=== PATIENT | male | born 1950 | race Caucasian/White ===

== ENCOUNTER 2022-12-10 09:48 | Emergency (ER) | payer MEDICARE, SELFPAY ==
[2022-12-10] VITALS (13 sets, daily range): BP systolic 122–182; BP diastolic 60–91; PULSE 68–105; RESP 14–33; TEMP 36.9; O2SAT 97–100; BMI 21.8
--- NOTE | 2022-12-10 10:32 | ED.GENADULT ---
HPI - General Adult General Chief complaint: Dizziness Stated complaint: vision/balance/feeling sick Time Seen by Provider: 12/10/22 10:07 Source: patient Mode of arrival: Ambulatory Limitations: no limitations History of Present Illness HPI narrative: This is a 72-year-old male with history of hypertension, dyslipidemia, BPH, gastric bypass, single kidney and daily alcohol use who presents with complaint of 1 year of vision changes which he describes as spots sort of cloudy and sparkles he saw an eye doctor last week had a full eye exam and was told he had some age-related changes but no other acute changes. He also notes that he is had no fevers or chills no headaches but his legs have felt weak in general, he is developed a tremor in the past 1-2 years. He denies numbness or tingling. No paresthesias. Patient states no chest pain, no shortness of breath. He sometimes gets dizzy when he lays flat. 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 He has noted his gait seems to be a little bit off he states he walks like he is drunk. He notes he sometimes has some issues with short-term memory. Patient denies any nausea or vomiting. He notes loose stools but otherwise normal bowel movements. He recently had some urinary frequency saw his physician on Tuesday or Tuesday had blood work and urine and was found to have a bladder infection. Prescription was called in he is taken 1 or 2 doses total. Patient does note he is had a TURP in the past. He also notes he is developed a resting tremor that is constant nothing seems to make it better or worse. He denies any swelling in his extremities. Patient states prior surgeries include gastric bypass and then something he ?blew out? twice or was leaking and he had surgical repair for that. He is had a TURP, he states he is also had a nephrectomy and has a single kidney present. Patient denies any allergies. He chews tobacco, he states in the past 1 2 years he started drinking more frequently and has 1-2 drinks daily, no street drugs. He has tried THC but states it is not been helpful. He is quite anxious his sister from had something that leaked and cause a bleed in her brain and his brother had a tumor in his brain. Patient follows with Dr. Griffith through [facility] in [place]. Related Data Home Medications Medication Instructions Recorded Confirmed amlodipine 10 mg tablet 10 mg PO DAILY 12/10/22 12/10/22 amoxicillin 875 mg-potassium 1 tab PO BID 12/10/22 12/10/22 clavulanate 125 mg tablet atorvastatin 40 mg tablet 40 mg PO BEDTIME 12/10/22 12/10/22 fluoxetine 20 mg capsule 10 mg PO DAILY 12/10/22 12/10/22 metoprolol succinate 100 mg 100 mg PO DAILY 12/10/22 12/10/22 tablet,extended release 24 hr oxybutynin chloride 5 mg tablet 5 mg PO DAILY 12/10/22 12/10/22 Previous Rx's Medication Instructions Recorded thiamine HCl (vitamin B1) 100 mg 100 mg PO DAILY #30 tabs 12/10/22 tablet Allergies Allergy/AdvReac Type Severity Reaction Status Date / Time No Known Drug Allergies Allergy Verified 12/10/22 10:09 Review of Systems Review of Systems ROS Unobtainable: All systems reviewed & are unremarkable except as noted in HPI and below Patient History Social History Smoking Status: Never smoker Smoking Status: Never smoker alcohol intake frequency: 0-2 drinks per day Substance Use Type: does not use Exam Narrative Exam Narrative: GEN: Thin elderly male, alert and oriented x 3, patient appears to be in mild distress. HEENT: Atraumatic, pupils are equal round reactive to light, extraocular movements are intact, no nystagmus, nares are clear, TMs are clear with no fluid, there is no conjunctival pallor. Throat is clear without any exudates, erythema, tonsillar enlargement or uvular deviation, no facial droop HEART: Regular rate and rhythm without murmur, clicks, rubs. No carotid bruits, pulses are equal in upper and lower extremities LUNGS:Lungs clear to auscultation, no wheezes, rales, crackles, chest moves symmetrically, no tachypnea or accessory muscle use. ABD:bowel sounds normal, soft, non-tender, no guarding, rebound, rigidity, no masses noted, no hepatosplenomegaly :No CVA tenderness MSCL: Non-tender, no muscle atrophy, muscles strength 5/5 upper and lower extremities, full range of motion. NEURO:CN 2-12 intact, sensation normal, reflexes 2/4 upper and brisk bilateral lower extremities. finger nose finger test normal, heel harding test normal, patient does have a generalized resting tremor on examination. Normal speech no dysarthria or aphasia. SKIN: Patient has multiple small areas of ecchymosis on his bilateral upper extremities. PSYCH: Patient expresses issues with short-term memory such as forgetting where he put a wrench or what he is looking for. Expresses anxiety. No depression. Does note increased use of alcohol the past 1-2 years. Initial Vital Signs Initial Vital Signs: Vital Signs Pulse Rate 104 H 12/10/22 09:55 Pulse Oximetry 100 12/10/22 09:55 Course Orders Ordered: ED Orders 12/10/22 11:01 Complete Blood Count AUTO DIFF Stat Comprehensive Metabolic Panel Stat ETOH [Ethanol (ETOH)] Stat Folate Stat MAG [Magnesium] Stat PTT Partial Thromboplastin Mihir Stat Prothrombin Time INR Stat TSH [Thyroid Stimulating Hormone] Stat Troponin I Stat 12/10/22 11:34 CT angio head and neck Stat 12/10/22 11:57 Urine Drug Screen, Rapid Stat Discontinued Medications Sodium Chloride (Normal Saline 0.9%) 1,000 mls @ 1,000 mls/hr IV BOLUS ONE Stop: 12/10/22 12:34 Last Infusion: 12/10/22 13:16 Dose: 0 mls/hr Documented By: Admin: 12/10/22 12:06 Dose: 1,000 mls/hr Documented By: KONRAD Vital Signs Vital signs: Vital Signs - 8 hr 12/10/22 11:30 12/10/22 11:30 12/10/22 11:52 Pulse Rate 79 Respiratory Rate 20 Blood Pressure 122/64 168/79 H Pulse Oximetry 98 12/10/22 11:52 12/10/22 12:00 12/10/22 12:00 Pulse Rate 95 H 79 Respiratory Rate 17 14 Blood Pressure 145/60 H Pulse Oximetry 100 99 12/10/22 12:30 12/10/22 12:30 12/10/22 13:00 Pulse Rate 79 Respiratory Rate 19 Blood Pressure 128/66 137/66 Pulse Oximetry 98 12/10/22 13:00 Pulse Rate 68 Respiratory Rate 14 Blood Pressure Pulse Oximetry 97 Medical Decision Making Lab Data 12/10/22 11:01 12/10/22 11:01 Labs: Lab Results 12/10/22 12/10/22 12/10/22 Range/Units 11:01 11:01 11:01 WBC 3.4 L (4.5-11.0) X10^3/uL RBC 3.55 L (4.5-5.9) X10^6/uL Hgb 12.1 L (13.5-17.5) g/dL Hct 36.0 L (41-53) % MCV 101.6 H (80-100) fL MCH 34.2 H (26-34) PG MCHC 33.6 (30-36) % RDW 13.2 (11.6-14.8) % Plt Count 255 (150-400) X10^3/uL Neut % (Auto) 68.0 (50-75) % Lymph % (Auto) 23.2 L (25-40) % [place] % (Auto) 6.0 (3-14) % Eos % (Auto) 1.8 L (2-4) % Baso % (Auto) 1.0 (0-2) % Neut # (Auto) 2300 (7399-1552) /uL Lymph # (Auto) 800 L (0996-5730) /uL [place] # (Auto) 200 (0-900) /uL Eos # (Auto) 100 (0-450) /uL Baso # (Auto) 0 (0-100) /uL PT 11.3 (10.1-12.7) SECONDS INR 1.0 (0.9-1.3) APTT 28 (26-36) SECONDS Sodium 141 (137-145) mmol/L Potassium 5.3 H (3.4-5.1) mmol/L Chloride 111 H (98-107) mmol/L Carbon Dioxide 17 L (22-32) mmol/L BUN 17 (9-20) mg/dL Creatinine 1.61 H (0.66-1.25) mg/dL Estimated GFR 46 L (>60) mL/min BUN/Creatinine Ratio 10.6 (6-22) Glucose 101 (80-110) mg/dL Calcium 8.3 L (8.4-10.2) mg/dL Magnesium (1.6-2.3) mg/dL Total Bilirubin 0.5 (0.2-1.3) mg/dL AST 25 (17-59) IU/L ALT 23 (<50) IU/L Alkaline Phosphatase 164 H (38-126) U/L Troponin I < 0.012 (0.01-0.034) ng/mL Total Protein 7.2 (6.3-8.2) g/dL Albumin 4.1 (3.5-5.0) g/dL Globulin 3.1 (1.7-4.1) g/dL Albumin/Globulin Ratio 1.3 (1.0-2.8) Folate (2.76-20.0) ng/mL TSH (0.47-4.68) uIU/mL U Opiates 300ng/mL cut (Negative) Ur Oxycodone Screen (Negative) Urine Methadone Screen (Negative) Ur Barbiturates Screen (Negative) U Tricyclic Antidepress (Negative) Ur Phencyclidine Scrn (Negative) Ur Amphetamines Screen (Negative) U Methamphetamines Scrn (Negative) Ur MDMA Scrn (Ecstasy) (Negative) U Benzodiazepines Scrn (Negative) Urine Cocaine Screen (Negative) U Marijuana (THC) Screen (Negative) Ethyl Alcohol ( - 10) mg/dL 12/10/22 12/10/22 12/10/22 Range/Units 11:01 11:01 11:01 WBC (4.5-11.0) X10^3/uL RBC (4.5-5.9) X10^6/uL Hgb (13.5-17.5) g/dL Hct (41-53) % MCV (80-100) fL MCH (26-34) PG MCHC (30-36) % RDW (11.6-14.8) % Plt Count (150-400) X10^3/uL Neut % (Auto) (50-75) % Lymph % (Auto) (25-40) % [place] % (Auto) (3-14) % Eos % (Auto) (2-4) % Baso % (Auto) (0-2) % Neut # (Auto) (0858-6660) /uL Lymph # (Auto) (3684-7291) /uL [place] # (Auto) (0-900) /uL Eos # (Auto) (0-450) /uL Baso # (Auto) (0-100) /uL PT (10.1-12.7) SECONDS INR (0.9-1.3) APTT (26-36) SECONDS Sodium (137-145) mmol/L Potassium (3.4-5.1) mmol/L Chloride (98-107) mmol/L Carbon Dioxide (22-32) mmol/L BUN (9-20) mg/dL Creatinine (0.66-1.25) mg/dL Estimated GFR (>60) mL/min BUN/Creatinine Ratio (6-22) Glucose (80-110) mg/dL Calcium (8.4-10.2) mg/dL Magnesium 2.2 (1.6-2.3) mg/dL Total Bilirubin (0.2-1.3) mg/dL AST (17-59) IU/L ALT (<50) IU/L Alkaline Phosphatase (38-126) U/L Troponin I (0.01-0.034) ng/mL Total Protein (6.3-8.2) g/dL Albumin (3.5-5.0) g/dL Globulin (1.7-4.1) g/dL Albumin/Globulin Ratio (1.0-2.8) Folate 2.9 (2.76-20.0) ng/mL TSH 1.71 (0.47-4.68) uIU/mL U Opiates 300ng/mL cut (Negative) Ur Oxycodone Screen (Negative) Urine Methadone Screen (Negative) Ur Barbiturates Screen (Negative) U Tricyclic Antidepress (Negative) Ur Phencyclidine Scrn (Negative) Ur Amphetamines Screen (Negative) U Methamphetamines Scrn (Negative) Ur MDMA Scrn (Ecstasy) (Negative) U Benzodiazepines Scrn (Negative) Urine Cocaine Screen (Negative) U Marijuana (THC) Screen (Negative) Ethyl Alcohol 40 H ( - 10) mg/dL / Range/Units 11:57 WBC (4.5-11.0) X10^3/uL RBC (4.5-5.9) X10^6/uL Hgb (13.5-17.5) g/dL Hct (41-53) % MCV (80-100) fL MCH (26-34) PG MCHC (30-36) % RDW (11.6-14.8) % Plt Count (150-400) X10^3/uL Neut % (Auto) (50-75) % Lymph % (Auto) (25-40) % [place] % (Auto) (3-14) % Eos % (Auto) (2-4) % Baso % (Auto) (0-2) % Neut # (Auto) (4857-5584) /uL Lymph # (Auto) (4303-0808) /uL [place] # (Auto) (0-900) /uL Eos # (Auto) (0-450) /uL Baso # (Auto) (0-100) /uL PT (10.1-12.7) SECONDS INR (0.9-1.3) APTT (26-36) SECONDS Sodium (137-145) mmol/L Potassium (3.4-5.1) mmol/L Chloride (98-107) mmol/L Carbon Dioxide (22-32) mmol/L BUN (9-20) mg/dL Creatinine (0.66-1.25) mg/dL Estimated GFR (>60) mL/min BUN/Creatinine Ratio (6-22) Glucose (80-110) mg/dL Calcium (8.4-10.2) mg/dL Magnesium (1.6-2.3) mg/dL Total Bilirubin (0.2-1.3) mg/dL AST (17-59) IU/L ALT (<50) IU/L Alkaline Phosphatase (38-126) U/L Troponin I (0.01-0.034) ng/mL Total Protein (6.3-8.2) g/dL Albumin (3.5-5.0) g/dL Globulin (1.7-4.1) g/dL Albumin/Globulin Ratio (1.0-2.8) Folate (2.76-20.0) ng/mL TSH (0.47-4.68) uIU/mL U Opiates 300ng/mL cut Negative (Negative) Ur Oxycodone Screen Negative (Negative) Urine Methadone Screen Negative (Negative) Ur Barbiturates Screen Negative (Negative) U Tricyclic Antidepress Negative (Negative) Ur Phencyclidine Scrn Negative (Negative) Ur Amphetamines Screen Negative (Negative) U Methamphetamines Scrn Negative (Negative) Ur MDMA Scrn (Ecstasy) Negative (Negative) U Benzodiazepines Scrn Negative (Negative) Urine Cocaine Screen Negative (Negative) U Marijuana (THC) Screen Positive H (Negative) Ethyl Alcohol ( - 10) mg/dL Imaging Data CTA - brain/neck: Radiologist's Impression: Close Head/Neck CTA (Signed) Favian Calvin - 12/10/22 Launch?[address] [address] [address] Scan Report Signed Patient: Konstantin Braun MR#: [id number] : 1950 Acct:[id number] Age/Sex: 72 / M Date of Service: 12/10/22 Loc: ED Accession Number: [id number] ?? Procedure: CT angio head and neck Ordering Provider: Mariana Krause D.O. PROCEDURE:? CT ANGIO HEAD AND NECK ? INDICATIONS:? vision change, weak, tremor, sister had aneurysm, bro tumor TECHNIQUE:? Pre-contrast 4.5 mm thick sections acquired from the foramen magnum to the vertex.? After the administration of intravenous contrast, 1 mm thick sections acquired from the aortic arch through the [place] of [place].? Post-contrast 4.5 mm thick sections then re-acquired from the foramen magnum to the vertex.? 3-dimensional bprpypo-frutqfpsu-vqvxqnkdxe (MIP) and/or volume rendering reformats were acquired of the central intracranial vasculature and neck separately. For radiation dose reduction, the following was used:? automated exposure control, adjustment of mA and/or kV according to patient size.? ? COMPARISON:? None. ? FINDINGS:? Image quality:? Excellent.? ? BRAIN:? CSF spaces:? Ventricles are normal in size and shape.? Basal cisterns are patent.? No extra-axial fluid collections.? ? Brain:? No midline shift.? No intracranial bleeds or masses.? [place]-white matter interface appears intact.? ? Skull and face:? Calvarium and facial bones appear intact, without suspicious lesions.? Orbits appear normal.? ? Sinuses:? Sinuses and mastoids are clear.? ? HEAD CT ANGIOGRAPHY:? Anterior circulation:? Intracranial internal carotid arteries are normal in size and flow.? The flow within the paired anterior cerebral arteries is normal and symmetric.? The flow within the middle cerebral arteries is normal and symmetric.? The anterior communicating artery is seen.? No aneurysms are seen.? ? Posterior circulation:? Visualized portions of the vertebral arteries demonstrate normal caliber, and join to form a normal appearing basilar artery.? Flow within the posterior cerebral arteries is normal and symmetric.? No aneurysms are seen.? ? NECK CT ANGIOGRAPHY:? Carotid system:? The great vessels demonstrate a conventional anatomy as they arise from the aortic arch.? The origins of the common carotid arteries appear patent.? The common carotid arteries demonstrate normal caliber and courses.? The bifurcation regions are both widely patent.? The internal carotid arteries demonstrate normal calibers and courses.? ? Posterior circulation:? The left vertebral artery is diminutive throughout its course, and terminates as the PICA.? The right vertebral artery is patent throughout its course. ? Soft tissues:? Visualized neck soft tissues demonstrate no suspicious abnormalities.? ? Bones:? No suspicious bony lesions.? Visualized cervical spine appears normally aligned.? IMPRESSION:? No acute intracranial pathology.? Patent head neck vasculature. ? Any quantitative measurements of stenosis were performed using NASCET criteria.? ? ? Dictated by: Favian Calvin M.D. on 12/10/2022 at 12:35 ? ? Approved by: Favian Calvin M.D. on 12/10/2022 at 12:40?? ECG Data Attestation: I personally reviewed and interpreted this ECG as follows: Interpretation: AFib rate of 90 QRS 114 QTC of 440. ?? Patient has what appears to be some motion artifact in V3 and V4, this is likely due to patients baseline resting tremor. MDM Narrative Medical decision making narrative: This is a 72-year-old male who presents with complaint of memory issues, tremor or gait disturbances that have been for the past year. Patient is quite anxious about possible brain tumor or aneurysm he would a sister that from an aneurysm from his description and a brother that had brain tumor. Head CT and angio are negative. Patient does drink daily this may be contributing as well. Lab workup shows white count of 3.4, anemia of 12 with some macrocytosis consistent with history of alcohol use, normal platelets. Coags are negative. Patient's creatinine is 1.61 patient does not have prior labs but had already noted that he has chronic kidney disease with single kidney in place suspect this is close to his baseline. Potassium was 5.3, chloride 111 with a CO2 of 17. Sodium 141 with a BUN of 17 as well. Glucose is appropriate troponin, LFTs negative folate was 2.9 with a TSH of 1.5. Patient does have marijuana on board no other changes on tox screen. Patient states he does drink 2 large drinks daily and alcohol was 40. Discussed with patient some of his symptoms maybe very related to his alcohol discussed I would like for him to follow up with his physician possibly as he could have some deficiencies contributing he is also had gastric bypass with alcohol intake and could have thiamine deficiency or other B12 deficiency. Also discussed with patient would likely benefit from cessation of alcohol have done so safely and probable follow up with Neurology as he is had persistent tremor that is always present does not seem to be related to alcohol withdrawal. Discharge Plan Departure Patient Disposition: Home Clinical Impression: Tremor, Anemia, Elevated serum creatinine Instructions: Korsakoff Syndrome Activity Restrictions/Additional Instructions: Follow-up with your physician for recheck, I would discuss whether or not to have thiamine or B12 checked or replaced as this could be contributing to your symptoms. Chronic alcohol use can also affect your gait and movement as well as memory, but I would also discussed with your physician if it might be appropriate to follow up with Neurology as well. Please continue your home medications as prescribed. I would recommend adding a daily thiamine at 100mg until you see your physician. Prescription was printed. Please return for sudden new or worsening symptoms, severe headaches, vision changes, increasing difficulty with movement, recurrent falls, chest pain, shortness of breath, persistent vomiting, seizure activity or altered mental status or other new or concerning changes. Prescriptions: New thiamine HCl (vitamin B1) 100 mg tablet 100 mg PO DAILY Qty: 30 0RF No Action atorvastatin 40 mg Tablet 40 mg PO BEDTIME metoprolol succinate 100 mg tablet extended release 24 hr 100 mg PO DAILY amlodipine 10 mg tablet 10 mg PO DAILY oxybutynin chloride 5 mg Tablet 5 mg PO DAILY fluoxetine 20 mg capsule 10 mg PO DAILY amoxicillin-pot clavulanate 875-125 mg tablet 1 tab PO BID Referrals: Miscellaneous,Doctor, MD [Primary Care Provider] - Stand Alone Forms: Patient Portal/API
[2022-12-10 11:16] LABS: Add Manual Diff / Slide Review NO; Basophils Absolute Auto 0 /uL (0-100); Eosinophils Absolute Auto 100 /uL (0-450); Eosinophils Percent Auto 1.8 % (2-4); Hemoglobin 12.1 g/dL (13.5-17.5); Lymphocytes Absolute Auto 800 /uL (1100-4500); Lymphocytes Percent Auto 23.2 % (25-40); Mean Corpuscular HGB Conc 33.6 % (30-36); Mean Corpuscular Hemoglobin 34.2 PG (26-34); Mean Corpuscular Volume 101.6 fL (80-100); Monocytes Absolute Auto 200 /uL (0-900); Neutrophils Absolute Auto 2300 /uL (1500-7000); Platelet Count 255 X10^3/uL (150-400); Red Blood Cell Count 3.55 X10^6/uL (4.5-5.9); Red Cell Distribution Width 13.2 % (11.6-14.8); White Blood Cell Count 3.4 X10^3/uL (4.5-11.0)
[2022-12-10 11:19] LABS: Prothrombin Time 11.3 SECONDS (10.1-12.7)
[2022-12-10 11:22] LABS: PTT Partial Thromboplastin Tim 28 SECONDS (26-36)
[2022-12-10 11:25] LABS: Alanine Aminotransferase 23 IU/L (<50); Albumin 4.1 g/dL (3.5-5.0); Albumin Globulin Ratio 1.3 (1.0-2.8); Alkaline Phosphatase 164 U/L (38-126); Aspartate Aminotransferase 25 IU/L (17-59); BUN Creatinine Ratio 10.6 (6-22); Bilirubin Total 0.5 mg/dL (0.2-1.3); Blood Urea Nitrogen 17 mg/dL (9-20); Calcium 8.3 mg/dL (8.4-10.2); Carbon Dioxide 17 mmol/L (22-32); Chloride 111 mmol/L (98-107); Estimated Glomerular Filt Rate 46 mL/min (>60); Globulin 3.1 g/dL (1.7-4.1); Glucose 101 mg/dL (80-110); HEMOLYSIS < 15 (0-50); Potassium 5.3 mmol/L (3.4-5.1); Sodium 141 mmol/L (137-145); Total Protein 7.2 g/dL (6.3-8.2)
[2022-12-10 11:27] LABS: Ethanol (ETOH) 40 mg/dL; Magnesium 2.2 mg/dL (1.6-2.3)
--- NOTE | 2022-12-10 11:34 | DI.CT.S_ITS ---
PROCEDURE: CT ANGIO HEAD AND NECK INDICATIONS: vision change, weak, tremor, sister had aneurysm, bro tumor TECHNIQUE: Pre-contrast 4.5 mm thick sections acquired from the foramen magnum to the vertex. After the administration of intravenous contrast, 1 mm thick sections acquired from the aortic arch through the [place] of [place]. Post-contrast 4.5 mm thick sections then re-acquired from the foramen magnum to the vertex. 3-dimensional zolzdpl-cjmvywrfz-nmzuitnfio (MIP) and/or volume rendering reformats were acquired of the central intracranial vasculature and neck separately. For radiation dose reduction, the following was used: automated exposure control, adjustment of mA and/or kV according to patient size. COMPARISON: None. FINDINGS: Image quality: Excellent. BRAIN: CSF spaces: Ventricles are normal in size and shape. Basal cisterns are patent. No extra-axial fluid collections. Brain: No midline shift. No intracranial bleeds or masses. Noriega-white matter interface appears intact. Skull and face: Calvarium and facial bones appear intact, without suspicious lesions. Orbits appear normal. Sinuses: Sinuses and mastoids are clear. HEAD CT ANGIOGRAPHY: Anterior circulation: Intracranial internal carotid arteries are normal in size and flow. The flow within the paired anterior cerebral arteries is normal and symmetric. The flow within the middle cerebral arteries is normal and symmetric. The anterior communicating artery is seen. No aneurysms are seen. Posterior circulation: Visualized portions of the vertebral arteries demonstrate normal caliber, and join to form a normal appearing basilar artery. Flow within the posterior cerebral arteries is normal and symmetric. No aneurysms are seen. NECK CT ANGIOGRAPHY: Carotid system: The great vessels demonstrate a conventional anatomy as they arise from the aortic arch. The origins of the common carotid arteries appear patent. The common carotid arteries demonstrate normal caliber and courses. The bifurcation regions are both widely patent. The internal carotid arteries demonstrate normal calibers and courses. Posterior circulation: The left vertebral artery is diminutive throughout its course, and terminates as the PICA. The right vertebral artery is patent throughout its course. Soft tissues: Visualized neck soft tissues demonstrate no suspicious abnormalities. Bones: No suspicious bony lesions. Visualized cervical spine appears normally aligned. IMPRESSION: No acute intracranial pathology. Patent head neck vasculature. Any quantitative measurements of stenosis were performed using NASCET criteria. Dictated by: Favian Calvin M.D. on 12/10/2022 at 12:35 Approved by: Favian Calvin M.D. on 12/10/2022 at 12:40
[2022-12-10 11:36] LABS: Troponin I < 0.012 ng/mL (0.01-0.034)
[2022-12-10 12:05] LABS: UR Morphine/Opiate cutoff 300 Negative (Negative); Ur Creatinine Normal (Normal); Ur Specific Gravity Normal (Normal); Urine Amphetamines Negative (Negative); Urine Barbiturates Negative (Negative); Urine Benzodiazepines Negative (Negative); Urine Cocaine Negative (Negative); Urine MDMA Negative (Negative); Urine Methadone Negative (Negative); Urine Methamphetamines Negative (Negative); Urine Oxycodone Negative (Negative); Urine Phencyclidine Negative (Negative); Urine Tetrahydrocannabinol Positive (Negative); Urine Tricyclic Antidepressant Negative (Negative); Urine pH Normal (Normal)
[2022-12-10] MEDS: SODIUM CHLORIDE 0.9% 1,000 ML 1000 ML IV (12:06)
[2022-12-10 12:08] LABS: Thyroid Stimulating Hormone 1.71 uIU/mL (0.47-4.68)
[2022-12-10 12:33] LABS: Folate 2.9 ng/mL (2.76-20.0)
== END 2022-12-10 13:33 | disposition home or self-care (01) ==
PROVIDERS: Emergency Provider Emergency Medicine
DX: R25.1 Tremor, unspecified (principal); D64.9 Anemia, unspecified; R79.89 Other specified abnormal findings of blood chemistry
CPT/HCPCS: 36415; 70496; 70498; 80053; 80305; 80320; 82746; 83735; 84443; 84484; 85025; 85610; 85730; 93005; 96360; 99284; Q9967

== ENCOUNTER 2023-03-02 09:30 | Emergency (ER) | payer MEDICARE, SELFPAY ==
[2023-03-02] VITALS (16 sets, daily range): BP systolic 118–146; BP diastolic 69–86; PULSE 57–77; RESP 18; TEMP 36.7; O2SAT 98–100
[2023-03-02 09:56] LABS: Ictotest Urine Negative (Negative)
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
[2023-03-02 10:00] LABS: Bacteria Urine None Seen; Culture Indicated Urine Specimen Cultured; RBC Urine 0-1/HPF (0-5/HPF); Squamous Epithelial Cell Urine 0-1 /HPF (0-5/HPF); WBC Urine 1-5/HPF (0-5/HPF)
[2023-03-02] MEDS: SODIUM CHLORIDE 0.9% 1,000 ML 150 ML IV (10:20)
[2023-03-02 10:27] LABS: Add Manual Diff / Slide Review NO; Basophils Absolute Auto 0 /uL (0-100); Basophils Percent Auto 0.6 % (0-2); Eosinophils Absolute Auto 100 /uL (0-450); Hematocrit 31.7 % (41-53); Hemoglobin 10.7 g/dL (13.5-17.5); Lymphocytes Absolute Auto 700 /uL (1100-4500); Lymphocytes Percent Auto 21.3 % (25-40); Mean Corpuscular HGB Conc 33.8 % (30-36); Mean Corpuscular Hemoglobin 34.3 PG (26-34); Mean Corpuscular Volume 101.5 fL (80-100); Monocytes Absolute Auto 300 /uL (0-900); Monocytes Percent Auto 8.1 % (3-14); Neutrophils Absolute Auto 2200 /uL (1500-7000); Platelet Count 136 X10^3/uL (150-400); Red Blood Cell Count 3.12 X10^6/uL (4.5-5.9); Red Cell Distribution Width 14.9 % (11.6-14.8); White Blood Cell Count 3.2 X10^3/uL (4.5-11.0)
[2023-03-02 10:47] LABS: Alanine Aminotransferase 43 IU/L (<50); Albumin 3.7 g/dL (3.5-5.0); Albumin Globulin Ratio 1.4 (1.0-2.8); Alkaline Phosphatase 89 U/L (38-126); Aspartate Aminotransferase 46 IU/L (17-59); BUN Creatinine Ratio 13.9 (6-22); Bilirubin Total 0.8 mg/dL (0.2-1.3); Blood Urea Nitrogen 20 mg/dL (9-20); Calcium 8.4 mg/dL (8.4-10.2); Carbon Dioxide 24 mmol/L (22-32); Chloride 108 mmol/L (98-107); Estimated Glomerular Filt Rate 52 mL/min (>60); Globulin 2.7 g/dL (1.7-4.1); Glucose 105 mg/dL (80-110); HEMOLYSIS < 15 (0-50); Lipase 106 U/L (23-300); Sodium 137 mmol/L (137-145); Total Protein 6.4 g/dL (6.3-8.2)
[2023-03-02 10:52] LABS: Ethanol (ETOH) < 10 mg/dL
--- NOTE | 2023-03-02 11:05 | DI.US.S_ITS ---
PROCEDURE: US ABDOMEN LIMITED INDICATIONS: RUQ pain TECHNIQUE: Real-time focused scanning was performed of the abdomen, with image documentation. COMPARISON: None. FINDINGS: Liver measures 16.9 cm. Non mobile focus of echogenicity is present along the gallbladder wall measuring 15 mm. Wall thickness measures 2.8 mm. Common bile duct measures 5.1 mm. Simple right renal cyst is present measuring 31 mm. The scattered nonobstructing right renal foci of echogenicity are present. IMPRESSION: Gallbladder demonstrates non mobile foci of echogenicity possibly related to adherent sludge or polyp. Wall thickness is within normal limits. Simple right renal cyst. Nonobstructing subcentimeter right renal calculi. Dictated by: Kendra Kurtz M.D. on 03/02/2023 at 11:56 Approved by: Kendra Kurtz M.D. on 03/02/2023 at 11:59
--- NOTE | 2023-03-02 12:13 | DI.CT.S_ITS ---
PROCEDURE: CT KIDNEY URETER BLADDER (KUB) INDICATIONS: Hematuria. Right back pain. TECHNIQUE: Axial sections were acquired from the lung bases to the pubic symphysis. Coronal and sagittal reformats were performed. For radiation dose reduction, the following was used: automated exposure control, adjustment of mA and/or kV according to patient size. COMPARISON: [facility], CT, CT ABDOMEN PELVIS WITHOUT CONTRAST, 07/31/2021, 15:41. FINDINGS: Image quality: Excellent. Lung bases: Unremarkable. Heart: No significant findings. URINARY: Right Kidney: Nonobstructing stones are seen in lower pole right kidney measures 3-4 mm in size. Likely simple cyst in upper pole right kidney measures 2.7 x 2.6 cm in size is also seen. No hydronephrosis. Right Ureter: No hydroureter. Left Kidney: Left kidney is surgically absent. No gross abnormality is seen in left renal fossa. Left ureter is not visualized. Bladder: Norm there is mild diffuse bladder wall thickening, no discrete bladder wall mass. No calcified bladder stones. Enlarged prostate gland is noted with mass effect on floor of urinary bladder. ABDOMEN: Liver: There is hepatomegaly, no discrete hepatic lesion. Gallbladder: Small stones are seen in dependent portion of gallbladder lumen. No gallbladder wall thickening or pericholecystic fluid. Biliary ducts: Unremarkable. Pancreas: Unremarkable. Spleen: Unremarkable. Adrenal Glands: Unremarkable. Stomach and Bowel: Postsurgical changes are noted from prior gastric bypass. Postsurgical changes are also noted in left upper quadrant abdomen from prior show bowel resection. No evidence of bowel obstruction. No gross abnormal bowel wall thickening or mesenteric fat stranding. No abscess collection. Fecal stasis in the colon is noted. Peritoneum: No abnormal intraperitoneal fluid. No free air. Ventral Wall: No hernia. Generalized anasarca is seen which was also noted on previous study. Abdominal Nodes: No enlarged retroperitoneal or mesenteric lymph nodes. Vessels: Aorta and inferior vena cava are normal in size. [id number] atherosclerotic calcifications are seen in abdominal aorta and bilateral iliac arteries. PELVIS: Pelvic Organs: Enlarged prostate gland as above.. Pelvic Nodes: Unremarkable. Miscellaneous: No inguinal hernias are seen. Bones: No suspicious bony lesions. Prior left total hip arthroplasty. No acute pelvic or hip fracture. No periprosthetic fracture. No acute compression fracture is seen in lumbar spine vertebral bodies. IMPRESSION: 1. Right renal cysts and nonobstructing right renal calculi. No hydronephrosis or hydroureter. 2. Prior left nephrectomy. No abnormality is seen in left renal fossa. 3. Diffuse bladder wall thickening . Prostate gland is enlarged with mass effect on floor of urinary bladder. No gross bladder wall mass or calcified bladder stone. 4. Postsurgical changes in epigastric region and left upper quadrant abdomen. No bowel obstruction or abnormal bowel wall thickening. No free fluid or free air. Aqek-[id number] constipation. 5. Cholelithiasis without CT evidence of acute cholecystitis. 6. Mild generalized anasarca. Dictated by: Watson Kemp M.D. on 03/02/2023 at 13:09 Approved by: Watson Kemp M.D. on 03/02/2023 at 13:22
== END 2023-03-02 14:29 | disposition home or self-care (01) ==
PROVIDERS: Emergency Provider Emergency Medicine
DX: K80.50 Calculus of bile duct without cholangitis or cholecystitis without obstruction (principal); N20.0 Calculus of kidney
CPT/HCPCS: 36415; 74176; 76705; 80053; 80320; 81003; 81015; 83690; 85025; 87086; 99284

== ENCOUNTER 2023-03-27 08:58 | Emergency (ER) | payer MEDICARE, SELFPAY ==
[2023-03-27] VITALS (10 sets, daily range): BP systolic 150–206; BP diastolic 73–99; PULSE 50–88; RESP 11–22; TEMP 37.3; O2SAT 100; BMI 20.5
--- NOTE | 2023-03-27 09:07 | DI.CT.S_ITS ---
PROCEDURE: CT ABDOMEN PELVIS W CON INDICATIONS: R SIDED ABD PAIN (PREV GASTRIC BYPASS) TECHNIQUE: After the administration of intravenous contrast, axial sections acquired from the lung bases to the pubic symphysis. Coronal and sagittal reformats were performed. For radiation dose reduction, the following was used: automated exposure control, adjustment of mA and/or kV according to patient size. COMPARISON: [facility], CT, CT KIDNEY URETER BLADDER (KUB), 03/02/2023, 12:55. FINDINGS: Image quality: Excellent. Lung bases: Unremarkable. Heart: No significant findings. ABDOMEN: Liver: Unremarkable. Gallbladder: Small dependent gallstones. Biliary ducts: Unremarkable. Pancreas: Unremarkable. Spleen: Unremarkable. Adrenal Glands: Unremarkable. Kidneys and Ureters: Status post left nephrectomy. Right renal simple cyst is stable. Small nonobstructing stone at the inferior pole the right kidney measuring 4 mm. No hydronephrosis. . Stomach and Bowel: Postsurgical changes from gastric bypass. Postsurgical changes in the left upper quadrant from prior small bowel resection. No evidence of bowel obstruction. Peritoneum: Small free fluid within the pelvis. Diffuse mild mesenteric edema. No free air. Ventral Wall: No hernias. Abdominal Nodes: No retroperitoneal or mesenteric adenopathy by size criteria. Vessels: Aorta and inferior vena cava are normal in size. Atherosclerotic vascular calcifications. PELVIS: Pelvic Organs: Enlarged prostate gland. Bladder: Mild diffuse urinary bladder wall thickening with mass effect on the floor the urinary bladder Pelvic Nodes: No enlarged lymph nodes. Miscellaneous: No hernias are seen. Bones: Left hip arthroplasty. Diffusely decreased osseous mineralization and multilevel degenerative changes of the spine. IMPRESSION: 1. Mild mesenteric edema and small free simple fluid within the pelvis of unclear etiology. May be related to volume overload, clinical correlation is recommended. 2. Redemonstration of 4 mm nonobstructing right renal calculus. No hydronephrosis. 3. Diffuse bladder wall thickening with enlarged prostate, may be secondary to chronic bladder outlet obstruction. If concern for cystitis, recommend urinalysis. 4. Cholelithiasis without CT evidence of acute cholecystitis. Dictated by: Red Kumari M.D. on 03/27/2023 at 10:12 Approved by: Red Kumari M.D. on 03/27/2023 at 10:22
--- NOTE | 2023-03-27 09:11 | ED_ITS ---
HPI - Abdominal Pain General Chief Complaint: Abdominal Pain Stated Complaint: pt thinks gall bladder Time Seen by Provider: 03/27/23 09:01 History of Present Illness HPI narrative: 72 year old male with history of gastric bypass, history of left nephrectomy (unknown reasons) presents by private vehicle from home for 1 day of right-sided abdominal/flank pain. Patient has been having intermittent abdominal pain for the last 6 months, he was told that he has a gallstone and that he should follow up with General surgery, however his gallbladder has not been able to be arranged to be taken out just yet. Pain was worse this morning and so he decided to present for evaluation. Denies nausea, vomiting, constipation, diarrhea, fevers, chills, any other complaints at this time. Related Data Home Medications Medication Instructions Recorded Confirmed amlodipine 10 mg tablet 10 mg PO DAILY 12/10/22 12/10/22 amoxicillin 875 mg-potassium 1 tab PO BID 12/10/22 12/10/22 clavulanate 125 mg tablet atorvastatin 40 mg tablet 40 mg PO BEDTIME 12/10/22 12/10/22 fluoxetine 20 mg capsule 10 mg PO DAILY 12/10/22 12/10/22 metoprolol succinate 100 mg 100 mg PO DAILY 12/10/22 12/10/22 tablet,extended release 24 hr oxybutynin chloride 5 mg tablet 5 mg PO DAILY 12/10/22 12/10/22 Previous Rx's Medication Instructions Recorded thiamine HCl (vitamin B1) 100 mg 100 mg PO DAILY #30 tabs 12/10/22 tablet cefdinir 300 mg capsule 300 mg PO BID #20 caps 03/27/23 tamsulosin 0.4 mg capsule (Flomax) 0.4 mg PO DAILY #30 caps 03/27/23 Allergies Allergy/AdvReac Type Severity Reaction Status Date / Time No Known Drug Allergies Allergy Verified 03/27/23 09:14 Review of Systems Review of Systems Narrative: CONSTITUTIONAL- Denies: fever, chills, fatigue HEENT- Denies: sore throat, nosebleed, vision changes RESPIRATORY- Denies: shortness of breath, cough, wheezing CARDIAC- Denies: chest pain, edema, orthopnea GI-reports: Abdominal pain Denies: nausea, vomiting, constipation, diarrhea -reports: Flank pain Denies: frequency, dysuria, hematuria MSK-Denies: extremity pain, extremity swelling, joint pain SKIN- Denies: rash, itching, burn, swelling NEUROLOGICAL- Denies: headache, numbness, weakness, dizziness PSYCHIATRIC- Denies: anxiety, depression, suicidal ideation, homicidal ideation Patient History Medical History (Updated 03/27/23 @ 10:58 by Mariana Mendoza MD) Complications of gastric bypass surgery GI bleed Surgical History (Updated 03/27/23 @ 12:12 by Mariana Mendoza MD) H/O gastric bypass H/O right nephrectomy Social History Smoking Status: Never smoker Smoking Status: Never smoker alcohol intake frequency: 0-2 drinks per day Substance Use Type: does not use Exam Initial Vital Signs Initial Vital Signs: Vital Signs Temperature 99.2 F 03/27/23 09:06 Pulse Rate 88 03/27/23 09:06 Respiratory Rate 22 03/27/23 09:06 Blood Pressure 206/99 H 03/27/23 09:06 Pulse Oximetry 100 03/27/23 09:06 Oxygen Delivery Method Room Air 03/27/23 09:06 Const: Awake, alert, frail Eyes: PERRL, EOMI, conjunctiva normal ENT: Atraumatic, dentition normal, mucous membranes moist Cardiac: regular rate, regular rhythm RESP: unlabored, clear bilaterally, no wheezing GI: Atraumatic, soft, RUQ tenderness to deep palpation without rebound or guarding MSK Back: Atraumatic, full range of motion, R sided CVA TTP Skin: Warm, Dry, intact, no rashes Neuro: AO x3, CN II-XII grossly intact, moves all extremities Psych: affect normal, mood normal, not suicidal, not homicidal Course Course Course Narrative: Frail but nontoxic appearing patient with abdominal/flank pain, has had a history of kidney stones in the remote past and has been told that his gallbladder has stones in it previously. Vitals reviewed, unremarkable. We will give pain medications and will order labs, imaging. Orders Ordered: ED Orders 03/27/23 09:07 CT abdomen pelvis w con Stat 03/27/23 09:10 CBC Auto Diff [Complete Blood Count AUTO DIFF] Stat CMP [Comprehensive Metabolic Panel] Stat Lactate (Lactic Acid) Stat Lipase Stat EKG-12 Lead Stat 03/27/23 10:25 UA Complete [Urinalysis and Microscopic] Stat Urine Culture Stat Discontinued Medications Sodium Chloride (Normal Saline 0.9%) 1,000 mls @ 1,000 mls/hr IV BOLUS ONE Stop: 03/27/23 10:06 Last Infusion: 03/27/23 11:10 Dose: 0 mls/hr Documented By: Admin: 03/27/23 09:15 Dose: 1,000 mls/hr Documented By: ARMAAN Ceftriaxone Sodium 1,000 mg/ (Sodium Chloride) 100 mls @ 200 mls/hr IV NOW ONE Stop: 03/27/23 10:52 Last Infusion: 03/27/23 11:47 Dose: 0 mls/hr Documented By: Admin: 03/27/23 11:04 Dose: 200 mls/hr Documented By: ARMAAN Morphine Sulfate (Morphine 4 Mg/Ml Inj) 4 mg IV NOW ONE Stop: 03/27/23 09:08 Last Admin: 03/27/23 09:15 Dose: 4 mg Documented By: ARMAAN Reevaluation(s) Reevaluation #1: Laboratory work is reviewed, no leukocytosis, no elevation in lactic acid. Liver enzymes are normal. UA with leukocyte esterase, WBCs, bacteria. CT of the abdomen and pelvis shows nonspecific ?mesentery edema?, however patient's pain is isolated in the right upper quadrant and back pain, there is no other abdominal tenderness to light or deep palpation. Gallstone is seen in the gallbladder without signs of cholecystitis, additionally patient's liver enzymes are normal. There is a solitary kidney without stone. Bladder noted to be thickened concerning for cystitis. In combination with urinalysis patient likely has cystitis with possible pyelonephritis since he has pain there. Patient's pain is well controlled, he is tolerating p.o., labs were normal without evidence of sepsis. Patient counseled on all lab and imaging results, he is resting comfortably in ED bed. There are no recent microbiology sensitivities, patient denies recent treatment for UTI. We will discharge with 10 days of cefdinir. Patient will also be started on daily Flomax, he was strongly counseled to follow up with Urology for further management of his enlarged prostate. ED return precautions discussed at bedside. Patient expressed understanding of the plan and is in agreement at this time. All questions answered at the time of discharge. Vital Signs Vital signs: Vital Signs - 8 hr 03/27/23 09:06 03/27/23 09:10 03/27/23 09:23 Temperature 99.2 F Pulse Rate 88 68 74 Respiratory Rate 22 11 L 15 Blood Pressure 206/99 H Pulse Oximetry 100 100 100 Oxygen Delivery Method Room Air 03/27/23 09:23 03/27/23 09:30 03/27/23 09:30 Temperature Pulse Rate 66 Respiratory Rate 13 Blood Pressure 168/82 H 173/83 H Pulse Oximetry 100 Oxygen Delivery Method Room Air 03/27/23 09:58 03/27/23 09:58 03/27/23 10:30 Temperature Pulse Rate 69 65 Respiratory Rate 12 15 Blood Pressure 168/77 H Pulse Oximetry 100 100 Oxygen Delivery Method 03/27/23 11:00 03/27/23 11:30 03/27/23 11:35 Temperature Pulse Rate 51 L 50 L Respiratory Rate 16 18 Blood Pressure 150/73 H Pulse Oximetry 100 100 Oxygen Delivery Method 03/27/23 11:35 03/27/23 11:47 03/27/23 11:47 Temperature Pulse Rate 50 L 52 L Respiratory Rate 21 14 Blood Pressure 156/75 H Pulse Oximetry 100 100 Oxygen Delivery Method Room Air MDM - Abdominal Pain Lab Data 03/27/23 09:10 03/27/23 09:10 Labs: Lab Results 03/27/23 03/27/23 03/27/23 Range/Units 09:10 09:10 09:10 WBC 4.8 (4.5-11.0) X10^3/uL RBC 3.60 L (4.5-5.9) X10^6/uL Hgb 12.6 L (13.5-17.5) g/dL Hct 38.0 L (41-53) % MCV 105.8 H (80-100) fL MCH 35.0 H (26-34) PG MCHC 33.1 (30-36) % RDW 16.6 H (11.6-14.8) % Plt Count 188 (150-400) X10^3/uL Neut % (Auto) 66.7 (50-75) % Lymph % (Auto) 24.3 L (25-40) % Travis % (Auto) 6.4 (3-14) % Eos % (Auto) 1.7 L (2-4) % Baso % (Auto) 0.9 (0-2) % Neut # (Auto) 3200 (3836-0904) /uL Lymph # (Auto) 1200 (3538-7594) /uL Travis # (Auto) 300 (0-900) /uL Eos # (Auto) 100 (0-450) /uL Baso # (Auto) 0 (0-100) /uL Sodium 136 L (137-145) mmol/L Potassium 5.1 (3.4-5.1) mmol/L Chloride 110 H (98-107) mmol/L Carbon Dioxide 20 L (22-32) mmol/L BUN 28 H (9-20) mg/dL Creatinine 1.69 H (0.66-1.25) mg/dL Estimated GFR 43 L (>60) mL/min BUN/Creatinine Ratio 16.6 (6-22) Glucose 107 (80-110) mg/dL Lactate 0.7 (0.7-2.1) mmol/L Calcium 8.7 (8.4-10.2) mg/dL Total Bilirubin 0.9 (0.2-1.3) mg/dL AST 43 (17-59) IU/L ALT 39 (<50) IU/L Alkaline Phosphatase 111 (38-126) U/L Total Protein 7.0 (6.3-8.2) g/dL Albumin 4.1 (3.5-5.0) g/dL Globulin 2.9 (1.7-4.1) g/dL Albumin/Globulin Ratio 1.4 (1.0-2.8) Lipase (23-300) U/L Urine Color Urine Appearance Urine pH (4.5-8.0) Ur Specific Cromwell (1.000-1.035) Urine Protein (Negative) Urine Glucose (UA) (Negative) g/dL Urine Ketones (NEGATIVE) Urine Occult Blood (Negative) Urine Nitrate (Negative) Urine Bilirubin (NEGATIVE) Urine Urobilinogen (0.2) E.U./dL Ur Leukocyte Esterase (NEGATIVE) Urine RBC (0-5/HPF) Urine WBC (0-5/HPF) Ur Squamous Epith Cells (0-5/HPF) Amorphous Sediment Urine Bacteria (None) Ur Culture Indicated? 03/27/23 03/27/23 Range/Units 09:10 10:25 WBC (4.5-11.0) X10^3/uL RBC (4.5-5.9) X10^6/uL Hgb (13.5-17.5) g/dL Hct (41-53) % MCV (80-100) fL MCH (26-34) PG MCHC (30-36) % RDW (11.6-14.8) % Plt Count (150-400) X10^3/uL Neut % (Auto) (50-75) % Lymph % (Auto) (25-40) % Travis % (Auto) (3-14) % Eos % (Auto) (2-4) % Baso % (Auto) (0-2) % Neut # (Auto) (5138-4002) /uL Lymph # (Auto) (7252-8378) /uL Travis # (Auto) (0-900) /uL Eos # (Auto) (0-450) /uL Baso # (Auto) (0-100) /uL Sodium (137-145) mmol/L Potassium (3.4-5.1) mmol/L Chloride (98-107) mmol/L Carbon Dioxide (22-32) mmol/L BUN (9-20) mg/dL Creatinine (0.66-1.25) mg/dL Estimated GFR (>60) mL/min BUN/Creatinine Ratio (6-22) Glucose (80-110) mg/dL Lactate (0.7-2.1) mmol/L Calcium (8.4-10.2) mg/dL Total Bilirubin (0.2-1.3) mg/dL AST (17-59) IU/L ALT (<50) IU/L Alkaline Phosphatase (38-126) U/L Total Protein (6.3-8.2) g/dL Albumin (3.5-5.0) g/dL Globulin (1.7-4.1) g/dL Albumin/Globulin Ratio (1.0-2.8) Lipase 176 (23-300) U/L Urine Color Yellow Urine Appearance Clear Urine pH 5.5 (4.5-8.0) Ur Specific [place] 1.010 (1.000-1.035) Urine Protein Negative (Negative) Urine Glucose (UA) Negative (Negative) g/dL Urine Ketones Negative (NEGATIVE) Urine Occult Blood Negative (Negative) Urine Nitrate Negative (Negative) Urine Bilirubin Negative (NEGATIVE) Urine Urobilinogen 0.2 (0.2) E.U./dL Ur Leukocyte Esterase Trace H (NEGATIVE) Urine RBC None seen (0-5/HPF) Urine WBC 10-30/hpf H (0-5/HPF) Ur Squamous Epith Cells None seen (0-5/HPF) Amorphous Sediment 1+ Urine Bacteria Occasional (0-1) (None) Ur Culture Indicated? Specimen cultured Discharge Plan Departure Patient Disposition: Home Clinical Impression: Acute pyelonephritis Instructions: DI for Kidney Infection Activity Restrictions/Additional Instructions: YOU WERE SEEN TODAY FOR RIGHT-SIDED FLANK PAIN. YOUR LABORATORY WORK HERE LOOKS TO BE AT YOUR BASELINE. YOU DO HAVE A URINARY TRACT INFECTION THAT MAY INVOLVE YOUR KIDNEY, THIS COULD BE WHY YOU ARE HAVING FLANK PAIN. YOU WERE GIVEN AN IV ANTIBIOTIC TODAY AND YOU WILL BE DISCHARGED ON 10 DAYS OF ORAL ANTIBIOTICS. YOUR PROSTATE WAS NOTED TO BE LARGE, THIS IS COMMON IN MEN, HOWEVER I DO RECOM MEND THAT YOU FOLLOW UP WITH THE UROLOGIST. A REFERRAL TO A UROLOGIST IN [place] HAS BEEN PROVIDED, OR YOU MAY FOLLOW WITH THE UROLOGIST OF YOUR CHOICE. DAILY FLOMAX CAN HELP VOIDING URINE. Prescriptions: New cefdinir 300 mg capsule 300 mg PO BID Qty: 20 0RF tamsulosin [Flomax] 0.4 mg capsule 0.4 mg PO DAILY Qty: 30 0RF No Action atorvastatin 40 mg Tablet 40 mg PO BEDTIME metoprolol succinate 100 mg tablet extended release 24 hr 100 mg PO DAILY amlodipine 10 mg tablet 10 mg PO DAILY oxybutynin chloride 5 mg Tablet 5 mg PO DAILY fluoxetine 20 mg capsule 10 mg PO DAILY amoxicillin-pot clavulanate 875-125 mg tablet 1 tab PO BID thiamine HCl (vitamin B1) 100 mg tablet 100 mg PO DAILY Qty: 30 0RF Referrals: Trey Ndiaye MD [Physician] - Miscellaneous,MD Maile [Primary Care Provider] - Stand Alone Forms: Patient Portal/API
[2023-03-27] MEDS: MORPHINE 4 MG/ML INJ IV (09:15)
[2023-03-27] MEDS: SODIUM CHLORIDE 0.9% 1,000 ML 1000 ML IV (09:15)
[2023-03-27 09:19] LABS: Add Manual Diff / Slide Review NO; Basophils Absolute Auto 0 /uL (0-100); Basophils Percent Auto 0.9 % (0-2); Eosinophils Absolute Auto 100 /uL (0-450); Eosinophils Percent Auto 1.7 % (2-4); Hemoglobin 12.6 g/dL (13.5-17.5); Lymphocytes Absolute Auto 1200 /uL (1100-4500); Lymphocytes Percent Auto 24.3 % (25-40); Mean Corpuscular HGB Conc 33.1 % (30-36); Mean Corpuscular Volume 105.8 fL (80-100); Monocytes Absolute Auto 300 /uL (0-900); Monocytes Percent Auto 6.4 % (3-14); Neutrophils Absolute Auto 3200 /uL (1500-7000); Neutrophils Percent Auto 66.7 % (50-75); Platelet Count 188 X10^3/uL (150-400); Red Cell Distribution Width 16.6 % (11.6-14.8); White Blood Cell Count 4.8 X10^3/uL (4.5-11.0)
[2023-03-27 09:29] LABS: Alanine Aminotransferase 39 IU/L (<50); Albumin 4.1 g/dL (3.5-5.0); Albumin Globulin Ratio 1.4 (1.0-2.8); Alkaline Phosphatase 111 U/L (38-126); Aspartate Aminotransferase 43 IU/L (17-59); BUN Creatinine Ratio 16.6 (6-22); Bilirubin Total 0.9 mg/dL (0.2-1.3); Blood Urea Nitrogen 28 mg/dL (9-20); Calcium 8.7 mg/dL (8.4-10.2); Carbon Dioxide 20 mmol/L (22-32); Chloride 110 mmol/L (98-107); Estimated Glomerular Filt Rate 43 mL/min (>60); Globulin 2.9 g/dL (1.7-4.1); Glucose 107 mg/dL (80-110); HEMOLYSIS 21 (0-50); Lipase 176 U/L (23-300); Potassium 5.1 mmol/L (3.4-5.1); Sodium 136 mmol/L (137-145)
[2023-03-27 09:30] LABS: Lactate (Lactic Acid) 0.7 mmol/L (0.7-2.1)
[2023-03-27 10:29] LABS: Appearance Urine UA CLEAR; Bilirubin Urine UA NEGATIVE (NEGATIVE); Color Urine UA YELLOW; Glucose Urine UA NEGATIVE (Negative); Ketones Urine UA NEGATIVE (NEGATIVE); Leukocyte Esterase Urine UA TRACE (NEGATIVE); Nitrite Urine UA NEGATIVE (Negative); Occult Blood Urine UA NEGATIVE (Negative); Protein Urine UA NEGATIVE (Negative); Urobilinogen Urine UA 0.2 E.U./dL (0.2); pH Urine UA 5.5 (4.5-8.0)
[2023-03-27 10:38] LABS: RBC Urine None Seen (0-5/HPF); WBC Urine 10-30/HPF (0-5/HPF)
[2023-03-27 10:39] LABS: Amorphous Sediment Urine 1+; Bacteria Urine Occasional (0-1); Culture Indicated Urine Specimen Cultured; Squamous Epithelial Cell Urine None Seen (0-5/HPF)
[2023-03-27] MEDS: cefTRIAXone 1,000 MG in SODIUM CHLORIDE 0.9% 100 ML 200 MG IV (11:04)
== END 2023-03-27 12:00 | disposition home or self-care (01) ==
PROVIDERS: Emergency Provider Emergency Medicine
DX: N10 Acute pyelonephritis (principal)
CPT/HCPCS: 36415; 74177; 80053; 81001; 83605; 83690; 85025; 87077; 87086; 87185; 87186; 93005; 96361; 96365; 96375; 99284; J0696; J2270; Q9967

== ENCOUNTER 2023-05-17 08:46 | Emergency (ER) | payer MEDICARE, SELFPAY ==
[2023-05-17] VITALS (47 sets, daily range): BP systolic 75–177; BP diastolic 51–110; PULSE 91–257; RESP 7–28; O2SAT 91–100; BMI 21.8
--- NOTE | 2023-05-17 08:54 | DI.RAD.S_ITS ---
PROCEDURE: XR CHEST 1V INDICATIONS: chest pain TECHNIQUE: One view of the chest was acquired. COMPARISON: [facility], CR, XR CHEST 1 VIEW, 09/04/2021, 21:09. FINDINGS: Surgical changes and devices: Percutaneous pacing pads. Lungs and pleura: No dense consolidation or pleural effusion. Mediastinum: Heart size is within normal limits Bones and chest wall: Degenerative changes. IMPRESSION: No acute radiographic abnormality. Pacing pads are seen. Dictated by: Chilo Houston M.D. on 05/17/2023 at 9:35 Approved by: Chilo Houston M.D. on 05/17/2023 at 9:36
[2023-05-17] MEDS: SODIUM CHLORIDE 0.9% 1,000 ML 1000 ML IV (08:57)
[2023-05-17] MEDS: ADENOSINE 6 MG/2 ML VIAL IV (08:58)
--- NOTE | 2023-05-17 08:58 | ED_ITS ---
HPI - Chest Pain General Chief Complaint: Chest Pain Stated Complaint: chest pain Time Seen by Provider: 05/17/23 08:56 Source: patient Mode of arrival: Wheelchair History of Present Illness HPI narrative: 72-year-old male with history of gastric bypass, history of left nephrectomy, hypertension, dyslipidemia who presents with complaint of chest pain and fast heart rate for the past several days. Patient states he is felt lightheaded he has not passed out. Denies fevers or chills. States feels a little short of breath but mostly some chest discomfort. Patient states no nausea or vomiting. He has had some recent diarrhea, he states no black or bloody stools. No urinary symptoms. No swelling in his extremities. He states he does not know how fast his heart rates been but states it has been elevated. He did drive himself here today. Patient states he takes medication for hypertension and cholesterol. He is not sure of all his daily medications he states no prior heart issues no prior arrhythmias. He is had a nephrectomy and prior gastric bypass. No known drug allergies. He does drink several alcoholic drinks daily he states he does get shaky if he does not have a drink but denies any other DT symptoms. States last drink was last night which is typical for him. No tobacco, no recreational drugs. Patient does have a primary care physician in the area but does not recall their name. Does not see a lap cutter truer operator. Related Data Home Medications Medication Instructions Recorded Confirmed amlodipine 10 mg tablet 10 mg PO DAILY 12/10/22 12/10/22 amoxicillin 875 mg-potassium 1 tab PO BID 12/10/22 12/10/22 clavulanate 125 mg tablet atorvastatin 40 mg tablet 40 mg PO BEDTIME 12/10/22 12/10/22 fluoxetine 20 mg capsule 10 mg PO DAILY 12/10/22 12/10/22 metoprolol succinate 100 mg 100 mg PO DAILY 12/10/22 12/10/22 tablet,extended release 24 hr oxybutynin chloride 5 mg tablet 5 mg PO DAILY 12/10/22 12/10/22 Previous Rx's Medication Instructions Recorded thiamine HCl (vitamin B1) 100 mg 100 mg PO DAILY #30 tabs 12/10/22 tablet cefdinir 300 mg capsule 300 mg PO BID #20 caps 03/27/23 tamsulosin 0.4 mg capsule (Flomax) 0.4 mg PO DAILY #30 caps 03/27/23 dabigatran etexilate 150 mg 150 mg PO BID #60 caps 05/17/23 capsule (Pradaxa) metoprolol succinate 50 mg See Rx Instructions .Route 05/17/23 tablet,extended release 24 hr .COMPLEX #30 tabs Allergies Allergy/AdvReac Type Severity Reaction Status Date / Time No Known Drug Allergies Allergy Verified 03/27/23 09:14 Review of Systems Review of Systems ROS Unobtainable: All systems reviewed & are unremarkable except as noted in HPI and below Patient History Medical History GI bleed Complications of gastric bypass surgery Surgical History H/O gastric bypass H/O right nephrectomy Social History Smoking Status: Never smoker Smoking Status: Never smoker alcohol intake frequency: 0-2 drinks per day Substance Use Type: does not use Exam Narrative Exam Narrative: GENERAL: Alert and oriented x three, elderly male, appears pale. HEENT: Head normocephalic, atraumatic, EOMI, pupils reactive, face symmetric, moist mucous membranes NECK: Supple, full range of motion CARDIOVASCULAR: Tachycardic rate and rhythm without murmurs, rubs or gallops. No edema bilateral lower extremities. JVD bilaterally. Positive pulses bilateral upper extremities. RESPIRATORY: Breath sounds equal bilaterally, no wheezes rales or rhonchi. No tachypnea accessory muscle use. ABDOMEN: Soft, nontender. Normoactive bowel sounds all 4 quadrants. No guarding or rebound, rigidity, no mass. Nondistended. : No CVA tenderness EXTREMITIES: Normal range of motion, no clubbing or edema. Neurovascularly intact NEUROLOGICAL: Cranial nerves II through XII grossly intact. Moving all extremities SKIN: Warm, dry, no petechiae, no rashes or lesions. Initial Vital Signs Initial Vital Signs: Vital Signs Pulse Oximetry 91 05/17/23 08:53 Procedures Cardioversion Consent Signed: No Indication: SVT with right bundle-branch block Stability: Unstable Additional Comments: Patient given 6 mg of adenosine, slowed to 130 blood pressure improved and patient has since stabilized. Patient did not have electrical cardioversion at this time. Course Orders Ordered: Discontinued Medications Adenosine (Adenosine 6 Mg/2 Ml Vial) 6 mg IV NOW ONE Stop: 05/17/23 09:04 Last Admin: 05/17/23 08:58 Dose: 6 mg Documented By: ARMAAN Aspirin (Aspirin 81 Mg Chew Tab) 324 mg PO NOW ONE Stop: 05/17/23 08:54 Last Admin: 05/17/23 09:07 Dose: 324 mg Documented By: ARMAAN Dabigatran (Dabigatran 75 Mg Capsule) 150 mg PO NOW ONE Stop: 05/17/23 11:25 Last Admin: 05/17/23 11:36 Dose: 150 mg Documented By: RAHAT Diltiazem HCl (Diltiazem 5 Mg/Ml Sdv) 10 mg IV NOW ONE Stop: 05/17/23 09:03 Last Admin: 05/17/23 10:03 Dose: Not Given Documented By: RAHAT Diltiazem HCl (Diltiazem 5 Mg/Ml Sdv) 10 mg IV NOW ONE Stop: 05/17/23 10:18 Last Admin: 05/17/23 10:19 Dose: 10 mg Documented By: RAHAT Sodium Chloride (Normal Saline 0.9%) 1,000 mls @ 1,000 mls/hr IV BOLUS ONE Stop: 05/17/23 10:30 Last Infusion: 05/17/23 09:57 Dose: Infused Documented By: Admin: 05/17/23 08:57 Dose: 1,000 mls/hr Documented By: RAHAT Metoprolol Succinate (Metoprolol Er 50 Mg Tablet) 100 mg PO NOW ONE Stop: 05/17/23 11:26 Last Admin: 05/17/23 11:37 Dose: 100 mg Documented By: RAHAT Vital Signs Vital signs: Vital Signs - 8 hr 05/17/23 08:53 05/17/23 08:55 05/17/23 08:55 Pulse Rate 256 H Respiratory Rate 24 Blood Pressure 79/51 L 79/51 L Pulse Oximetry 91 96 Oxygen Delivery Method Room Air 05/17/23 08:55 05/17/23 08:57 05/17/23 08:57 Pulse Rate 257 H 256 H Respiratory Rate 10 L 19 Blood Pressure 75/54 L Pulse Oximetry 98 95 Oxygen Delivery Method 05/17/23 09:00 05/17/23 09:00 05/17/23 09:01 Pulse Rate 185 H Respiratory Rate 23 Blood Pressure 146/88 H 159/81 H Pulse Oximetry 99 Oxygen Delivery Method 05/17/23 09:01 05/17/23 09:05 05/17/23 09:05 Pulse Rate 147 H 133 H Respiratory Rate 15 20 Blood Pressure 142/89 H Pulse Oximetry 99 99 Oxygen Delivery Method 05/17/23 09:10 05/17/23 09:10 05/17/23 09:15 Pulse Rate 130 H Respiratory Rate 12 Blood Pressure 147/92 H 152/98 H Pulse Oximetry 100 Oxygen Delivery Method 05/17/23 09:15 05/17/23 09:20 05/17/23 09:20 Pulse Rate 130 H 130 H Respiratory Rate 15 11 L Blood Pressure 152/102 H Pulse Oximetry 100 100 Oxygen Delivery Method 05/17/23 09:25 05/17/23 09:25 05/17/23 09:30 Pulse Rate 130 H 132 H Respiratory Rate 8 L 14 Blood Pressure 152/103 H Pulse Oximetry 100 100 Oxygen Delivery Method 05/17/23 09:30 05/17/23 09:35 05/17/23 09:35 Pulse Rate 114 H Respiratory Rate 20 Blood Pressure 146/101 H 147/102 H Pulse Oximetry 100 Oxygen Delivery Method 05/17/23 09:40 05/17/23 09:40 05/17/23 09:45 Pulse Rate 109 H Respiratory Rate 13 Blood Pressure 145/100 H 143/89 H Pulse Oximetry 100 Oxygen Delivery Method 05/17/23 09:45 05/17/23 09:50 05/17/23 09:50 Pulse Rate 111 H 112 H Respiratory Rate 11 L Blood Pressure 144/94 H Pulse Oximetry 100 100 Oxygen Delivery Method 05/17/23 09:55 05/17/23 09:55 05/17/23 10:00 Pulse Rate 108 H Respiratory Rate 11 L Blood Pressure 152/94 H 142/86 H Pulse Oximetry 100 Oxygen Delivery Method 05/17/23 10:00 05/17/23 10:05 05/17/23 10:05 Pulse Rate 108 H 108 H Respiratory Rate 13 21 Blood Pressure 142/92 H Pulse Oximetry 97 97 Oxygen Delivery Method 05/17/23 10:10 05/17/23 10:10 05/17/23 10:15 Pulse Rate 109 H Respiratory Rate 12 Blood Pressure 143/92 H 126/103 H Pulse Oximetry 99 Oxygen Delivery Method 05/17/23 10:15 05/17/23 10:19 05/17/23 10:19 Pulse Rate 134 H 133 H 133 H Respiratory Rate 17 14 Blood Pressure 126/103 H Pulse Oximetry 100 100 Oxygen Delivery Method 05/17/23 10:20 05/17/23 10:20 05/17/23 10:25 Pulse Rate 133 H 102 H Respiratory Rate 16 15 Blood Pressure 148/101 H Pulse Oximetry 99 99 Oxygen Delivery Method 05/17/23 10:25 05/17/23 10:30 05/17/23 10:30 Pulse Rate 91 H Respiratory Rate 7 L Blood Pressure 146/88 H 143/85 H Pulse Oximetry 100 Oxygen Delivery Method 05/17/23 10:35 05/17/23 10:35 05/17/23 10:41 Pulse Rate 92 H Respiratory Rate 10 L Blood Pressure 143/89 H 177/110 H Pulse Oximetry 100 Oxygen Delivery Method 05/17/23 10:41 05/17/23 10:45 05/17/23 10:45 Pulse Rate 137 H 118 H Respiratory Rate 28 H 18 Blood Pressure 154/96 H Pulse Oximetry 99 99 Oxygen Delivery Method 05/17/23 10:50 05/17/23 10:50 05/17/23 10:55 Pulse Rate 105 H Respiratory Rate 14 Blood Pressure 150/95 H 143/84 H Pulse Oximetry 99 Oxygen Delivery Method 05/17/23 10:55 05/17/23 11:00 05/17/23 11:00 Pulse Rate 96 H 97 H Respiratory Rate 13 Blood Pressure 143/84 H Pulse Oximetry 100 99 Oxygen Delivery Method 05/17/23 11:05 05/17/23 11:05 05/17/23 11:10 Pulse Rate 92 H 107 H Respiratory Rate 17 Blood Pressure 141/89 H Pulse Oximetry 99 99 Oxygen Delivery Method 05/17/23 11:10 05/17/23 11:15 05/17/23 11:15 Pulse Rate 95 H Respiratory Rate 12 Blood Pressure 148/94 H 144/93 H Pulse Oximetry 99 Oxygen Delivery Method 05/17/23 11:20 05/17/23 11:20 05/17/23 11:25 Pulse Rate 103 H Respiratory Rate Blood Pressure 150/96 H 149/97 H Pulse Oximetry 99 Oxygen Delivery Method 05/17/23 11:25 05/17/23 11:30 05/17/23 11:30 Pulse Rate 104 H 120 H Respiratory Rate 18 Blood Pressure 157/102 H Pulse Oximetry 99 98 Oxygen Delivery Method 05/17/23 11:36 05/17/23 11:36 05/17/23 11:37 Pulse Rate 107 H 105 H Respiratory Rate Blood Pressure 145/96 H 145/96 H Pulse Oximetry 99 Oxygen Delivery Method 05/17/23 11:40 05/17/23 11:40 05/17/23 11:45 Pulse Rate 113 H Respiratory Rate 20 Blood Pressure 143/92 H 146/97 H Pulse Oximetry 99 Oxygen Delivery Method 05/17/23 11:45 05/17/23 11:50 05/17/23 11:50 Pulse Rate 106 H 104 H Respiratory Rate 12 13 Blood Pressure 147/98 H Pulse Oximetry 99 99 Oxygen Delivery Method MDM - Chest Pain Lab Data 05/17/23 09:01 05/17/23 09:01 Labs: Lab Results 05/17/23 05/17/23 Range/Units 09:01 10:45 WBC 7.9 (4.5-11.0) X10^3/uL RBC 3.49 L (4.5-5.9) X10^6/uL Hgb 12.3 L (13.5-17.5) g/dL Hct 36.8 L (41-53) % MCV 105.5 H (80-100) fL MCH 35.4 H (26-34) PG MCHC 33.5 (30-36) % RDW 13.4 (11.6-14.8) % Plt Count 323 (150-400) X10^3/uL Neut % (Auto) 65.7 (50-75) % Lymph % (Auto) 28.6 (25-40) % [place] % (Auto) 3.2 (3-14) % Eos % (Auto) 1.2 L (2-4) % Baso % (Auto) 1.3 (0-2) % Neut # (Auto) 5200 (5511-6033) /uL Lymph # (Auto) 2300 (1004-2857) /uL [place] # (Auto) 300 (0-900) /uL Eos # (Auto) 100 (0-450) /uL Baso # (Auto) 100 (0-100) /uL PT 11.7 (10.1-12.7) SECONDS INR 1.0 (0.9-1.3) APTT 28 (26-36) SECONDS Sodium 137 (137-145) mmol/L Potassium 4.1 (3.4-5.1) mmol/L Chloride 110 H (98-107) mmol/L Carbon Dioxide 19 L (22-32) mmol/L BUN 20 (9-20) mg/dL Creatinine 1.59 H (0.66-1.25) mg/dL Estimated GFR 46 L (>60) mL/min BUN/Creatinine Ratio 12.6 (6-22) Glucose 165 H (80-110) mg/dL Calcium 8.7 (8.4-10.2) mg/dL Magnesium 1.8 (1.6-2.3) mg/dL Total Bilirubin 0.8 (0.2-1.3) mg/dL AST 37 (17-59) IU/L ALT 37 (<50) IU/L Alkaline Phosphatase 101 (38-126) U/L Total Creatine Kinase 44 L (55-170) U/L Troponin I 0.017 (0.01-0.034) ng/mL NT-Pro-B Natriuret Pep 2990 H (<125) pg/mL Total Protein 6.4 (6.3-8.2) g/dL Albumin 3.7 (3.5-5.0) g/dL Globulin 2.7 (1.7-4.1) g/dL Albumin/Globulin Ratio 1.4 (1.0-2.8) Lipase 142 (23-300) U/L TSH 7.13 H (0.47-4.68) uIU/mL Free T4 1.72 (0.78-2.19) ng/dL Free T3 3.16 (2.77-5.27) pg/mL U Opiates 300ng/mL cut Negative (Negative) Ur Oxycodone Screen Negative (Negative) Urine Methadone Screen Negative (Negative) Ur Barbiturates Screen Negative (Negative) U Tricyclic Antidepress Negative (Negative) Ur Phencyclidine Scrn Negative (Negative) Ur Amphetamines Screen Negative (Negative) U Methamphetamines Scrn Negative (Negative) Ur MDMA Scrn (Ecstasy) Negative (Negative) U Benzodiazepines Scrn Negative (Negative) Urine Cocaine Screen Negative (Negative) U Marijuana (THC) Screen Positive H (Negative) Ethyl Alcohol < 10 ( - 10) mg/dL Imaging Data Chest x-ray: Radiologist's Impression: [address] [address] XRay Report Signed Patient: Konstantin Braun MR#: [id number] : 1950 Acct:[id number] Age/Sex: 73 / M Date of Service: 05/17/23 Loc: ED Accession Number: [id number] Procedure: XR chest 1V Ordering Provider: Mariana Krause D.O. PROCEDURE: XR CHEST 1V INDICATIONS: chest pain TECHNIQUE: One view of the chest was acquired. COMPARISON: [facility], , XR CHEST 1 VIEW, 09/04/2021, 21:09. FINDINGS: Surgical changes and devices: Percutaneous pacing pads. Lungs and pleura: No dense consolidation or pleural effusion. Mediastinum: Heart size is within normal limits Bones and chest wall: Degenerative changes. IMPRESSION: No acute radiographic abnormality. Pacing pads are seen. Dictated by: Chilo Houston M.D. on 05/17/2023 at 9:35 Approved by: Chilo Houston M.D. on 05/17/2023 at 9:36 ECG Data Attestation: I personally reviewed and interpreted this ECG as follows: Prior ECG tracings: available for review Interpretation: Rate of 257, QRS of 162 QTC 343. Appears to be regular wide complex tachycardia but patient does have a right bundle. Patient has prior EKG from 03/27/2023 which showed AFib with incomplete right bundle. EKG 2. Shows a rate of 131 VT 120 QRS of 114 QTC of 493. Right bundle, patient does have some low amplitude in aVL V2 this was a repeat EKG. Does not appear to have ST elevation. Patient's EKG shows a deeper S-wave but the T-wave is not depressed on repeat EKG in comparison to prior from 03/27/2023. This is in the lateral leads other ST segments appear similar. EKG 3. Atrial fibrillation incomplete right bundle rate of 100 VT 116 Q[address] of [address] depression not present looks more similar to priors. MDM Narrative Medical decision making narrative: 73-year-old male comes in with rate of 250, patient received 6 mg of adenosine slowed had what appeared to be some flutter waves on tele but then appeared to be more regular rhythm without any sinus waves. Patient bounced around a little but has settled at about 130 for his rhythm. Does not appear to be in flutter at this time. Labs, chest x-ray were obtained. Patient was given a L of fluids. Chest x-ray shows no acute change. Labs show a mild anemia hemoglobin of 12.3 with similar it is beginning of March, white count of 7.9 platelets of 323 no leftward shift. Coags are negative, potassium 4 1 Mag is 1.8, sodium is 137 chloride 110 with a CO2 of 19 creatinine of 1.59 and glucose of 165 negative LFTs troponin is 0.017 with a BNP of 2990 and a TSH of 7.13, so free T4-T3 were ordered and are in normal range. ETOH is negative. UDS positive for THC no other changes. Patient heart rate continued to improve his now at 108 making atrial flutter as his source less likely. Patient's heart rate varied would back up to 130s was given 10 mg of diltiazem improved to the 90s to 100 range and on repeat EKG does appear to be atrial fibrillation does not appear to be flutter is irregularly irregular P waves are not present with every QRS. Patient is on metoprolol daily he is not on any anticoagulants. We discussed fall risk he does drink alcohol but states he is not following regularly. Discussed risks versus benefits dependent on recommendations from Cardiology. Spoke with Cardiology, Dr. Knapp recommends to increase metoprolol. Does agree with plan for anticoagulation does not have to stop unless has liver dysfunction or other high-risk fall issues. Is happy to see patient as outpatient for echo and further workup. Does encourage patient to stop drinking as this is going to increase his issues with cardiac arrhythmias. Reviewed patient appears to be in atrial fibrillation at this time but heart rate was quite elevated initially almost like an SVT did have some occasional flutter waves but not persistently and is still irregular but atrial fibrillation here in the department. Reviewed all findings with patient. He would like to meet with [facility] for outpatient options we did discuss inpatient detox or hospitalization and he is not interested in that at this time. He continues to range between about 90 and 110 fairly persistently occasional bumped up to 130s for his heart rate. Patient would like to return home and otherwise appears hemodynamically stable. He does think he is had his a.m. metoprolol. We will give a dose here start Pradaxa and said script to patient's pharmacy of choice. Discussed with patient can change direction as needed if he changes his mind. Critical Care Time Critical Care Time Critical Care Time: Yes Total Critical Care Time: 25 Attestation: The high probability of a clinically significant, sudden or life threatening deterioration of the [cardiac] system(s) required my full and direct attention, intervention and personal management. The aggregate critical care time was [] minutes. This time is in addition to time spent performing reported procedures but includes the following: [x] Data Review and interpretation [x] Patient assessment and monitoring of vital signs [x] Documentation [x] Medication orders and management Discharge Plan Departure Patient Disposition: Home Clinical Impression: Atrial fibrillation with rapid ventricular response, Alcohol use Instructions: DI for Arrhythmias Activity Restrictions/Additional Instructions: Please follow up with Cardiology. Call to set up an appointment for echo and further workup. I spoke with Dr. Knapp with Cardiology they are happy to follow with you. It is recommended that you continue to decrease your alcohol use and stop as alcohol causes irritation to the heart and arrhythmias. Your heart arrhythmia may not stop after you stop drinking but she would be better or easier to control. We are going to increase your daily metoprolol dose. Continue with 100 mg in the morning metoprolol succinate in the morning and add 50 mg metoprolol succinate in the evening. I would also recommend a blood thinner to prevent strokes, take 1 tablet twice daily. This does increase your risk of bleeding. Prescription sent to [facility] in [place] Please return for recurrent fast heart rate, chest pain, shortness of breath, lightheadedness or passing out, vomiting, new swelling in her extremities or other new or concerning changes. Prescriptions: New dabigatran etexilate [Pradaxa] 150 mg capsule 150 mg PO BID Qty: 60 0RF metoprolol succinate 50 mg tablet extended release 24 hr See Rx Instructions .ROUTE .COMPLEX Qty: 30 0RF Rx Instructions: Continue taking your regular 100 mg metoprolol succinate p.o. in the morning, then take 50 mg metoprolol succinate p.o. in the evening. No Action atorvastatin 40 mg Tablet 40 mg PO BEDTIME metoprolol succinate 100 mg tablet extended release 24 hr 100 mg PO DAILY amlodipine 10 mg tablet 10 mg PO DAILY oxybutynin chloride 5 mg Tablet 5 mg PO DAILY fluoxetine 20 mg capsule 10 mg PO DAILY amoxicillin-pot clavulanate 875-125 mg tablet 1 tab PO BID thiamine HCl (vitamin B1) 100 mg tablet 100 mg PO DAILY Qty: 30 0RF cefdinir 300 mg capsule 300 mg PO BID Qty: 20 0RF tamsulosin [Flomax] 0.4 mg capsule 0.4 mg PO DAILY Qty: 30 0RF Referrals: Miscellaneous,Doctor, [Primary Care Provider] - Manny Knapp MD [Physician] - Stand Alone Forms: Patient Portal/API
[2023-05-17] MEDS: ASPIRIN 81 MG CHEW TAB 324 MG PO (09:07)
[2023-05-17 09:09] LABS: Add Manual Diff / Slide Review NO; Basophils Absolute Auto 100 /uL (0-100); Basophils Percent Auto 1.3 % (0-2); Eosinophils Absolute Auto 100 /uL (0-450); Eosinophils Percent Auto 1.2 % (2-4); Hematocrit 36.8 % (41-53); Hemoglobin 12.3 g/dL (13.5-17.5); Lymphocytes Absolute Auto 2300 /uL (1100-4500); Lymphocytes Percent Auto 28.6 % (25-40); Mean Corpuscular HGB Conc 33.5 % (30-36); Mean Corpuscular Hemoglobin 35.4 PG (26-34); Mean Corpuscular Volume 105.5 fL (80-100); Monocytes Absolute Auto 300 /uL (0-900); Monocytes Percent Auto 3.2 % (3-14); Neutrophils Absolute Auto 5200 /uL (1500-7000); Neutrophils Percent Auto 65.7 % (50-75); Platelet Count 323 X10^3/uL (150-400); Red Blood Cell Count 3.49 X10^6/uL (4.5-5.9); Red Cell Distribution Width 13.4 % (11.6-14.8); White Blood Cell Count 7.9 X10^3/uL (4.5-11.0)
[2023-05-17 09:14] LABS: Prothrombin Time 11.7 SECONDS (10.1-12.7)
[2023-05-17 09:17] LABS: PTT Partial Thromboplastin Tim 28 SECONDS (26-36)
--- NOTE | 2023-05-17 09:19 | PC.NURSE ---
Pt drove himself to the emergency dept because he has been feeling like his heart beat is really fast over the last few days and today he felt really nauseous. Upon arrival to room, money examiner was placed on pt, EKG done and primary 18G IV started in L AC. Pt in SVT, HR 239. Pt endorses cp. Dr Krause notified and at bedside. Verbal order for 6mg IV adenosine pushed. HR now at 130s and regular. Pt states he feels better. CP improved. Pt A&Ox4.
[2023-05-17 09:21] LABS: Alanine Aminotransferase 37 IU/L (<50); Albumin 3.7 g/dL (3.5-5.0); Albumin Globulin Ratio 1.4 (1.0-2.8); Alkaline Phosphatase 101 U/L (38-126); Aspartate Aminotransferase 37 IU/L (17-59); BUN Creatinine Ratio 12.6 (6-22); Bilirubin Total 0.8 mg/dL (0.2-1.3); Blood Urea Nitrogen 20 mg/dL (9-20); Calcium 8.7 mg/dL (8.4-10.2); Carbon Dioxide 19 mmol/L (22-32); Chloride 110 mmol/L (98-107); Creatine Kinase 44 U/L (55-170); Estimated Glomerular Filt Rate 46 mL/min (>60); Globulin 2.7 g/dL (1.7-4.1); Glucose 165 mg/dL (80-110); HEMOLYSIS < 15 (0-50); Lipase 142 U/L (23-300); Magnesium 1.8 mg/dL (1.6-2.3); Potassium 4.1 mmol/L (3.4-5.1); Sodium 137 mmol/L (137-145); Total Protein 6.4 g/dL (6.3-8.2)
[2023-05-17 09:30] LABS: NT-proBNP (BNP-Adult 18+) 2990 pg/mL (<125)
[2023-05-17 09:32] LABS: Troponin I 0.017 ng/mL (0.01-0.034)
[2023-05-17 09:52] LABS: Thyroid Stimulating Hormone 7.13 uIU/mL (0.47-4.68)
[2023-05-17 10:05] LABS: Ethanol (ETOH) < 10 mg/dL
[2023-05-17] MEDS: dilTIAZem 5 MG/ML SDV 10 MG IV (10:19)
[2023-05-17 10:37] LABS: Free T3, Triiodothyronine Free 3.16 pg/mL (2.77-5.27); Free T4, Direct Thyroxine 1.72 ng/dL (0.78-2.19)
--- NOTE | 2023-05-17 10:45 | PC.NURSE ---
Pt sat up to edge of bed to use urinal. HR jumped to 130s. Pt a&ox4. Denies cp, sob, dizziness. Pt HR now 109 after sitting back in bed.
[2023-05-17 11:14] LABS: UR Morphine/Opiate cutoff 300 Negative (Negative); Ur Creatinine Normal (Normal); Ur Specific Gravity Normal (Normal); Urine Amphetamines Negative (Negative); Urine Barbiturates Negative (Negative); Urine Benzodiazepines Negative (Negative); Urine Cocaine Negative (Negative); Urine MDMA Negative (Negative); Urine Methadone Negative (Negative); Urine Methamphetamines Negative (Negative); Urine Oxycodone Negative (Negative); Urine Phencyclidine Negative (Negative); Urine Tetrahydrocannabinol Positive (Negative); Urine Tricyclic Antidepressant Negative (Negative); Urine pH Normal (Normal)
[2023-05-17] MEDS: DABIGATRAN 75 MG CAPSULE 150 MG PO (11:36)
[2023-05-17] MEDS: METOPROLOL ER 50 MG TABLET 100 MG PO (11:37)
--- NOTE | 2023-05-17 12:07 | CM.SWNOTE ---
ED MACHINE SHOP APPRENTICE Note ED provider request MACHINE SHOP APPRENTICE consult regarding patient's substance use disorder and patient requesting detox resources. Patient is 73 y/o male who presents to ED due to concern for chest pain and rapid heart rate. MACHINE SHOP APPRENTICE enters room to meet with patient, patient presents as A/Ox4, euthymic. Patient endorses he drinks multiple beverages daily almost every evening and either drinks wine and/or whiskey. Patient endorses he never drank his whole life until a few years ago and patient endorses his drinking has increased in the last 8 months. Patient endorses that he had a hx of using oxycodone when he was having arthritis pain and when they wanted to increase his dose he states he started drinking instead. Patient endorses embarrassment and shame as he never used to drink. Patient endorses he resides with spouse and works. Patient endorses that spouse is a support and is aware of his drinking. Patient endorses interest in d/c to home upon medical clearance today. MACHINE SHOP APPRENTICE provides patient with list of [facility] outpatient resources, patient denies any further needs from MACHINE SHOP APPRENTICE. Plan: Patient to d/c to home upon medical clearance, [facility] resources provided for patient. HARSHAD JewellSW
== END 2023-05-17 12:14 | disposition home or self-care (01) ==
PROVIDERS: Emergency Provider Emergency Medicine
DX: I48.20 Chronic atrial fibrillation, unspecified (principal); F10.90 Alcohol use, unspecified, uncomplicated; Y90.0 Blood alcohol level of less than 20 mg/100 ml
CPT/HCPCS: 36415; 71045; 80053; 80305; 80320; 82550; 83690; 83735; 83880; 84439; 84443; 84481; 84484; 85025; 85610; 85730; 93005; 93010; 96374; 96375; 96376; 99284; 99285; J0153

== ENCOUNTER 2023-07-18 11:18 | Emergency (ER) | payer MEDICARE, SELFPAY ==
[2023-07-18] VITALS (42 sets, daily range): BP systolic 137–216; BP diastolic 85–126; PULSE 66–132; RESP 11–24; O2SAT 98–100; BMI 21.2
--- NOTE | 2023-07-18 11:30 | DI.RAD.S_ITS ---
PROCEDURE: XR CHEST 1V INDICATIONS: TACHYARRHYTHMIA TECHNIQUE: One view of the chest was acquired. COMPARISON: [facility], CR, XR CHEST 1V, 05/17/2023, 9:14. FINDINGS: Surgical changes and devices: None. Lungs and pleura: Lungs are clear. No pleural effusions or pneumothorax. Mediastinum: Mediastinal contours appear normal. Heart size is normal. Bones and chest wall: No suspicious bony lesions. Overlying soft tissues appear unremarkable. IMPRESSION: No acute cardiopulmonary abnormality is seen. Dictated by: Alberto Llanos M.D. on 07/18/2023 at 12:13 Approved by: Alberto Llanos M.D. on 07/18/2023 at 12:13
--- NOTE | 2023-07-18 11:37 | ED.CHESTPAIN ---
HPI - Chest Pain General Chief Complaint: Chest Pain Stated Complaint: wants to check his pulse Time Seen by Provider: 07/18/23 11:26 Source: patient Mode of arrival: Ambulatory Limitations: no limitations History of Present Illness HPI narrative: Patient with PMH A fib on pradaxa, metoprolol presents wanting to check my pulse. Patient is very poor historian. He states he has felt poorly for a while but cannot describe his symptoms or how long a while is. He states that he thinks he has been compliant with his medication, but states that his is in charge of his medications and puts them in a little pillbox that he takes every day. Related Data Home Medications Medication Instructions Recorded Confirmed amlodipine 10 mg tablet 10 mg PO DAILY 12/10/22 12/10/22 amoxicillin 875 mg-potassium 1 tab PO BID 12/10/22 12/10/22 clavulanate 125 mg tablet atorvastatin 40 mg tablet 40 mg PO BEDTIME 12/10/22 12/10/22 fluoxetine 20 mg capsule 10 mg PO DAILY 12/10/22 12/10/22 metoprolol succinate 100 mg 100 mg PO DAILY 12/10/22 12/10/22 tablet,extended release 24 hr oxybutynin chloride 5 mg tablet 5 mg PO DAILY 12/10/22 12/10/22 Previous Rx's Medication Instructions Recorded thiamine HCl (vitamin B1) 100 mg 100 mg PO DAILY #30 tabs 12/10/22 tablet cefdinir 300 mg capsule 300 mg PO BID #20 caps 03/27/23 tamsulosin 0.4 mg capsule (Flomax) 0.4 mg PO DAILY #30 caps 03/27/23 dabigatran etexilate 150 mg 150 mg PO BID #60 caps 05/17/23 capsule (Pradaxa) metoprolol succinate 50 mg See Rx Instructions .Route 05/17/23 tablet,extended release 24 hr .COMPLEX #30 tabs apixaban 5 mg tablet (Eliquis) 5 mg PO BID #30 tabs 07/18/23 digoxin 125 mcg (0.125 mg) tablet 125 mcg PO DAILY #30 tabs 07/18/23 (Digox) metoprolol succinate 50 mg 50 mg PO Q12H #60 tabs 07/18/23 tablet,extended release 24 hr Allergies Allergy/AdvReac Type Severity Reaction Status Date / Time No Known Drug Allergies Allergy Verified 03/27/23 09:14 Review of Systems Review of Systems Narrative: Negative except as noted above Patient History Medical History GI bleed Complications of gastric bypass surgery Surgical History H/O gastric bypass H/O right nephrectomy Social History Smoking Status: Never smoker Smoking Status: Never smoker alcohol intake frequency: 0-2 drinks per day Substance Use Type: does not use Exam Initial Vital Signs Initial Vital Signs: Vital Signs Pulse Rate 132 H 07/18/23 11:28 Respiratory Rate 20 07/18/23 11:28 Blood Pressure 216/112 H 07/18/23 11:28 Pulse Oximetry 100 07/18/23 11:28 Oxygen Delivery Method Room Air 07/18/23 11:28 ?Const: Awake, alert, frail, appears chronically unwell Cardiac: tachycardia, irregularly irregular RESP: unlabored, clear bilaterally, no wheezing GI: Atraumatic, soft, nontender, nondistended, no rebound, no guarding MSK: Atraumatic, full range of motion, pulses equal Skin: Warm, Dry, intact, no rashes Neuro: AO x3, CN II-XII grossly intact, moves all extremities Psych: affect normal, mood normal, not suicidal, not homicidal Course Orders Ordered: Discontinued Medications Apixaban (Apixaban 5 Mg Tablet) 5 mg PO NOW ONE Stop: 07/18/23 13:58 Last Admin: 07/18/23 14:07 Dose: 5 mg Documented By: LIZZY Digoxin (Digoxin 0.125 Mg Tablet) 0.125 mg PO NOW ONE Stop: 07/18/23 13:57 Last Admin: 07/18/23 14:08 Dose: 0.125 mg Documented By: LIZZY Metoprolol Succinate (Metoprolol Er 50 Mg Tablet) 50 mg PO NOW ONE Stop: 07/18/23 13:57 Last Admin: 07/18/23 14:08 Dose: 50 mg Documented By: LIZZY Metoprolol Tartrate (Metoprolol Tartrate 5 Mg/5 Ml Inj) 5 mg IV Q5M YASH Stop: 07/18/23 11:41 Last Admin: 07/18/23 12:01 Dose: 5 mg Documented By: Admin: 07/18/23 11:49 Dose: 5 mg Documented By: Admin: 07/18/23 11:42 Dose: 5 mg Documented By: MADHAV Metoprolol Tartrate (Metoprolol Tartrate 5 Mg/5 Ml Inj) 5 mg IV Q5M YASH Stop: 07/18/23 13:41 Last Admin: 07/18/23 13:51 Dose: 5 mg Documented By: Admin: 07/18/23 13:42 Dose: 5 mg Documented By: Admin: 07/18/23 13:35 Dose: 5 mg Documented By: SB Vital Signs Vital signs: Vital Signs - 8 hr 07/18/23 11:28 07/18/23 11:29 07/18/23 11:30 Pulse Rate 132 H 132 H 132 H Respiratory Rate 20 12 11 L Blood Pressure 216/112 H Pulse Oximetry 100 100 99 Oxygen Delivery Method Room Air 07/18/23 11:35 07/18/23 11:40 07/18/23 11:40 Pulse Rate 132 H 131 H Respiratory Rate 14 19 Blood Pressure 212/126 H Pulse Oximetry 100 99 Oxygen Delivery Method 07/18/23 11:45 07/18/23 11:50 07/18/23 11:50 Pulse Rate 122 H 107 H Respiratory Rate 16 21 Blood Pressure 173/113 H Pulse Oximetry 100 100 Oxygen Delivery Method 07/18/23 11:51 07/18/23 11:51 07/18/23 11:55 Pulse Rate 105 H 98 H Respiratory Rate 16 14 Blood Pressure 184/116 H Pulse Oximetry 100 100 Oxygen Delivery Method 07/18/23 11:55 07/18/23 12:00 07/18/23 12:04 Pulse Rate 93 H Respiratory Rate 19 Blood Pressure 166/103 H 158/106 H Pulse Oximetry 100 Oxygen Delivery Method 07/18/23 12:04 07/18/23 12:05 07/18/23 12:05 Pulse Rate 90 75 Respiratory Rate 19 18 Blood Pressure 179/90 H Pulse Oximetry 99 100 Oxygen Delivery Method 07/18/23 12:10 07/18/23 12:10 07/18/23 12:15 Pulse Rate 68 67 Respiratory Rate 22 19 Blood Pressure 163/93 H Pulse Oximetry 100 100 Oxygen Delivery Method 07/18/23 12:15 07/18/23 12:20 07/18/23 12:20 Pulse Rate 66 Respiratory Rate 17 Blood Pressure 160/103 H 178/93 H Pulse Oximetry 100 Oxygen Delivery Method 07/18/23 12:25 07/18/23 12:25 07/18/23 12:30 Pulse Rate 67 79 Respiratory Rate 17 19 Blood Pressure 174/100 H Pulse Oximetry 99 100 Oxygen Delivery Method 07/18/23 12:30 07/18/23 12:35 07/18/23 12:35 Pulse Rate 79 Respiratory Rate 15 Blood Pressure 177/99 H 170/93 H Pulse Oximetry 98 Oxygen Delivery Method 07/18/23 12:40 07/18/23 12:40 07/18/23 12:45 Pulse Rate 78 81 Respiratory Rate 15 17 Blood Pressure 164/106 H Pulse Oximetry 99 99 Oxygen Delivery Method 07/18/23 12:45 07/18/23 12:50 07/18/23 12:50 Pulse Rate 76 Respiratory Rate 21 Blood Pressure 167/105 H 162/102 H Pulse Oximetry 98 Oxygen Delivery Method 07/18/23 12:55 07/18/23 12:55 07/18/23 13:00 Pulse Rate 84 78 Respiratory Rate 18 21 Blood Pressure 180/102 H Pulse Oximetry 99 98 Oxygen Delivery Method 07/18/23 13:00 07/18/23 13:05 07/18/23 13:05 Pulse Rate 78 Respiratory Rate 20 Blood Pressure 173/94 H 185/98 H Pulse Oximetry 99 Oxygen Delivery Method 07/18/23 13:10 07/18/23 13:10 07/18/23 13:15 Pulse Rate 90 91 H Respiratory Rate 18 22 Blood Pressure 169/103 H Pulse Oximetry 98 99 Oxygen Delivery Method 07/18/23 13:15 07/18/23 13:20 07/18/23 13:20 Pulse Rate 122 H Respiratory Rate 24 Blood Pressure 180/118 H 169/109 H Pulse Oximetry Oxygen Delivery Method 07/18/23 13:25 07/18/23 13:25 07/18/23 13:30 Pulse Rate 123 H 125 H Respiratory Rate 12 14 Blood Pressure 172/116 H Pulse Oximetry 99 99 Oxygen Delivery Method 07/18/23 13:30 07/18/23 13:35 07/18/23 13:35 Pulse Rate 125 H Respiratory Rate 14 Blood Pressure 171/110 H 173/115 H Pulse Oximetry 100 Oxygen Delivery Method Room Air 07/18/23 13:40 07/18/23 13:41 07/18/23 13:41 Pulse Rate 121 H 109 H Respiratory Rate 12 16 Blood Pressure 159/106 H Pulse Oximetry 99 99 Oxygen Delivery Method 07/18/23 13:45 07/18/23 13:45 Pulse Rate 125 H Respiratory Rate 21 Blood Pressure 165/113 H Pulse Oximetry 99 Oxygen Delivery Method Room Air MDM - Chest Pain Differential Diagnosis Differential diagnosis: Likely atypical chest pain, st elevation myocardial infarction and costochondritis Lab Data 07/18/23 11:43 07/18/23 11:43 Labs: Lab Results 07/18/23 Range/Units 11:43 WBC 5.5 (4.5-11.0) X10^3/uL RBC 3.72 L (4.5-5.9) X10^6/uL Hgb 12.6 L (13.5-17.5) g/dL Hct 37.7 L (41-53) % MCV 101.4 H (80-100) fL MCH 33.9 (26-34) PG MCHC 33.5 (30-36) % RDW 13.9 (11.6-14.8) % Plt Count 236 (150-400) X10^3/uL Neut % (Auto) 78.2 H (50-75) % Lymph % (Auto) 14.6 L (25-40) % Stokes % (Auto) 6.0 (3-14) % Eos % (Auto) 0.3 L (2-4) % Baso % (Auto) 0.9 (0-2) % Neut # (Auto) 4300 (3709-7493) /uL Lymph # (Auto) 800 L (9788-3244) /uL Stokes # (Auto) 300 (0-900) /uL Eos # (Auto) 0 (0-450) /uL Baso # (Auto) 0 (0-100) /uL PT 10.2 (9.4-12.5) SECONDS INR 0.9 (0.9-1.3) Sodium 136 L (137-145) mmol/L Potassium 5.6 H (3.4-5.1) mmol/L Chloride 110 H (98-107) mmol/L Carbon Dioxide 16 L (22-32) mmol/L BUN 36 H (9-20) mg/dL Creatinine 1.48 H (0.66-1.25) mg/dL Estimated GFR 50 L (>60) mL/min BUN/Creatinine Ratio 24.3 H (6-22) Glucose 148 H (80-110) mg/dL Calcium 9.7 (8.4-10.2) mg/dL Magnesium 2.1 (1.6-2.3) mg/dL Total Bilirubin 0.9 (0.2-1.3) mg/dL AST 22 (17-59) IU/L ALT 20 (<50) IU/L Alkaline Phosphatase 126 (38-126) U/L Total Creatine Kinase 34 L (55-170) U/L Troponin I < 0.012 (0.01-0.034) ng/mL NT-Pro-B Natriuret Pep 781 H (<125) pg/mL Total Protein 8.0 (6.3-8.2) g/dL Albumin 4.6 (3.5-5.0) g/dL Globulin 3.4 (1.7-4.1) g/dL Albumin/Globulin Ratio 1.4 (1.0-2.8) Ethyl Alcohol < 10 ( - 10) mg/dL MDM Narrative Medical decision making narrative: Patient presents requesting to have his pulse rate checked. Found to be in atrial fibrillation with RVR. Patient complaining of chest pain. Patient is poor historian and is difficult to tell if he has been compliant with his medications or has missed any doses because he states that his simply gives him his pills in a group every morning. He states he thinks he may have missed 1 or 2 doses of his metoprolol but is not sure. Patient has multiple medication lists with him, the most recent is from 07/01/2023 that has patient taking both diltiazem and metoprolol, and no blood thinners, However he was discharged on Pradaxa when he was seen in our ER in April 2023 patient's rate well controlled with IV metoprolol. Feeling much improved after rate decreased to normal limits. Call placed to patient's manager assurance's office at [facility], who recommended cessation of diltiazem, increasing metoprolol dose, starting digoxin, and starting blood thinners. The office will reach out to the patient to schedule a follow up appointment. It was also noted that the patient is an alcohol drinker. He was advised to decrease his alcohol intake as much as possible with sobriety being the ideal condition. Critical Care Time Critical Care Time Critical Care Time: Yes Total Critical Care Time: 53 Attestation: atrial fibrillation with rapid ventricular response requiring numerous IV medications for rate control. Discussion with Cardiology, frequent hemodynamically reassessments. Discharge Plan Departure Patient Disposition: Home Clinical Impression: Atrial fibrillation with RVR Instructions: DI for Arrhythmias Activity Restrictions/Additional Instructions: I SPOKE TO THE [facility] CARDIOLOGY OFFICE CONCERNING YOUR ATRIAL FIBRILLATION. THEY REQUEST THAT YOU STOP TAKING YOUR DILTIAZEM. PLEASE INCREASE YOUR METOPROLOL TO 50 MG TWICE DAILY. THE MEDICATION DIGOXIN IS ADDED, TAKE THIS ONE TIME DAILY. YOU WILL ALSO NEED TO BE ON A BLOOD THINNER, THIS HAS BEEN SENT TO THE [facility] IN [place]. IT IS EXTREMELY IMPORTANT THAT YOU FOLLOW UP WITH CARDIOLOGY. DECREASE YOUR DRINKING MUCH POSSIBLE, TOTAL SOBRIETY WOULD BE PREFERABLE. Prescriptions: New metoprolol succinate 50 mg tablet extended release 24 hr 50 mg PO Q12H Qty: 60 0RF Eliquis 5 mg tablet 5 mg PO BID Qty: 30 0RF digoxin [Digox] 125 mcg (0.125 mg) tablet 125 mcg PO DAILY Qty: 30 0RF No Action atorvastatin 40 mg Tablet 40 mg PO BEDTIME metoprolol succinate 100 mg tablet extended release 24 hr 100 mg PO DAILY amlodipine 10 mg tablet 10 mg PO DAILY oxybutynin chloride 5 mg Tablet 5 mg PO DAILY fluoxetine 20 mg capsule 10 mg PO DAILY amoxicillin-pot clavulanate 875-125 mg tablet 1 tab PO BID thiamine HCl (vitamin B1) 100 mg tablet 100 mg PO DAILY Qty: 30 0RF cefdinir 300 mg capsule 300 mg PO BID Qty: 20 0RF tamsulosin [Flomax] 0.4 mg capsule 0.4 mg PO DAILY Qty: 30 0RF dabigatran etexilate [Pradaxa] 150 mg capsule 150 mg PO BID Qty: 60 0RF metoprolol succinate 50 mg tablet extended release 24 hr See Rx Instructions .ROUTE .COMPLEX Qty: 30 0RF Rx Instructions: Continue taking your regular 100 mg metoprolol succinate p.o. in the morning, then take 50 mg metoprolol succinate p.o. in the evening. Referrals: Miscellaneous,Doctor, MD [Primary Care Provider] - Stand Alone Forms: Patient Portal/API
[2023-07-18] MEDS: METOPROLOL TARTRATE 5 MG/5 ML INJ IV ×6 (11:42→13:51)
[2023-07-18 11:50] LABS: Add Manual Diff / Slide Review NO; Basophils Absolute Auto 0 /uL (0-100); Basophils Percent Auto 0.9 % (0-2); Eosinophils Absolute Auto 0 /uL (0-450); Eosinophils Percent Auto 0.3 % (2-4); Hematocrit 37.7 % (41-53); Hemoglobin 12.6 g/dL (13.5-17.5); Lymphocytes Absolute Auto 800 /uL (1100-4500); Lymphocytes Percent Auto 14.6 % (25-40); Mean Corpuscular HGB Conc 33.5 % (30-36); Mean Corpuscular Hemoglobin 33.9 PG (26-34); Mean Corpuscular Volume 101.4 fL (80-100); Monocytes Absolute Auto 300 /uL (0-900); Neutrophils Absolute Auto 4300 /uL (1500-7000); Neutrophils Percent Auto 78.2 % (50-75); Platelet Count 236 X10^3/uL (150-400); Red Blood Cell Count 3.72 X10^6/uL (4.5-5.9); Red Cell Distribution Width 13.9 % (11.6-14.8); White Blood Cell Count 5.5 X10^3/uL (4.5-11.0)
[2023-07-18 12:00] LABS: INR 0.9 (0.9-1.3); Prothrombin Time 10.2 SECONDS (9.4-12.5)
[2023-07-18 12:06] LABS: Alanine Aminotransferase 20 IU/L (<50); Albumin 4.6 g/dL (3.5-5.0); Albumin Globulin Ratio 1.4 (1.0-2.8); Alkaline Phosphatase 126 U/L (38-126); Aspartate Aminotransferase 22 IU/L (17-59); BUN Creatinine Ratio 24.3 (6-22); Bilirubin Total 0.9 mg/dL (0.2-1.3); Blood Urea Nitrogen 36 mg/dL (9-20); Calcium 9.7 mg/dL (8.4-10.2); Carbon Dioxide 16 mmol/L (22-32); Chloride 110 mmol/L (98-107); Creatine Kinase 34 U/L (55-170); Estimated Glomerular Filt Rate 50 mL/min (>60); Ethanol (ETOH) < 10 mg/dL; Globulin 3.4 g/dL (1.7-4.1); Glucose 148 mg/dL (80-110); HEMOLYSIS < 15 (0-50); Sodium 136 mmol/L (137-145)
[2023-07-18 12:09] LABS: Potassium 5.6 mmol/L (3.4-5.1)
[2023-07-18 12:17] LABS: NT-proBNP (BNP-Adult 18+) 781 pg/mL (<125); Troponin I < 0.012 ng/mL (0.01-0.034)
--- NOTE | 2023-07-18 13:25 | PC.NURSE ---
Pt denies chest pain at this time. Reports chronic abdominal pain at 10.
--- NOTE | 2023-07-18 13:40 | PC.NURSE ---
Patient informs this RN he has had black stool since Tuesday. Provider Reji made aware.
[2023-07-18 13:44] LABS: Magnesium 2.1 mg/dL (1.6-2.3)
--- NOTE | 2023-07-18 13:44 | PC.NURSE ---
Dr Gillette cardiology at [facility] with paged for consult @ [phone] called back while writing note.
[2023-07-18] MEDS: APIXABAN 5 MG TABLET PO (14:07)
[2023-07-18] MEDS: DIGOXIN 0.125 MG TABLET PO (14:08)
[2023-07-18] MEDS: METOPROLOL ER 50 MG TABLET PO (14:08)
== END 2023-07-18 14:28 | disposition home or self-care (01) ==
PROVIDERS: Emergency Provider Emergency Medicine
DX: I48.91 Unspecified atrial fibrillation (principal); Z79.01 Long term (current) use of anticoagulants
CPT/HCPCS: 36415; 71045; 80053; 80320; 82550; 83735; 83880; 84484; 85025; 85610; 93005; 96374; 96376; 99284; 99285